=== PATIENT | female | born 1965 | race Caucasian/White ===

== ENCOUNTER 2019-03-19 13:16 | Inpatient (IN) | payer MEDICARE, OTHER ==
[~2019-03-19] VITALS: Ht 165.1 cm; Wt 94.6 kg
[2019-03-19] MEDS: ACCU-CHEK XX SCH (00:37)
[~2019-03-19 13:16] MED LIST: ATOR10TA65 PO; GLIM2TAB PO; LOSA1TAB22 PO; TAMO10TA20 PO
--- NOTE | 2019-03-19 14:07 | ERD ---
ER Documentation Chief Complaint Chief Complaint dizziness, Headache x2hrs, BS 233 HPI 53-year-old female presenting with history of recurrent breast cancer metastasized to her lungs presenting with right-sided frontal headache that started this morning. The headache was gradual in onset, now an 8 out of 10. The pain radiates to the back of her head. The pain is pressure-like. No alleviating or exacerbating factors. She has associated dizziness but denies any vomiting, focal weakness or numbness. She has never had a headache like this before. She recently finished chemotherapy for her lung metastases. Oncologist is Dr. Figueroa ROS All systems reviewed and are negative except as per history of present illness. Medications Home Meds Reported Medications Insulin Glargine/Lixisenatide (Soliqua 100 Unit-33 Mcg/ml Pen) 3 Ml Insuln.pen, 35 ML SQ QAM 03/19/19 Olmesartan/Amlodipin/Hcthiazid (Ojspeon-Mhimxm-Vayd 40-10-25Mg) 1 Each Tablet, 1 EACH PO DAILY, TAB 03/19/19 Citalopram Hydrobromide* (Celexa*) 20 Mg Tablet, 20 MG PO DAILY, #30 TAB 03/19/19 Anastrozole* (Arimidex*) 1 Mg Tablet, 1 MG PO DAILY, #30 TAB 03/19/19 Discontinued Reported Medications Atorvastatin (Atorvastatin) 10 Mg Tablet, 10 MG PO DAILY, #30 01/24/16 Glimepiride* (Glimepiride*) 2 Mg Tablet, 2 MG PO DAILY, #30 01/24/16 Losartan-Hydrochlorothiazide (Losartan-HCTZ) 50-12.5 Mg Tab, 50 MG PO DAILY, #30 50-12.5 MG 01/24/16 Tamoxifen Citrate* (Tamoxifen Citrate*) Unknown Strength Tab, PO BID, TAB 10/05/14 Allergies Allergies: Coded Allergies: No Known Allergy (Verified , 10/05/14) PMhx/Soc History of Surgery: Yes (RIGHT MASTECTOMY, port a cath) Anesthesia Reaction: No Hx Neurological Disorder: No Hx Respiratory Disorders: No Hx Cardiac Disorders: Yes (HTN, HYPERLIPIDEMIA) Hx Psychiatric Problems: No Hx Miscellaneous Medical Probl: Yes (BREAST CANCER) Hx Alcohol Use: No Hx Substance Use: No Hx Tobacco Use: No FmHx Family History: No diabetes Physical Exam Vitals Vital Signs Date Temp Pulse Resp B/P (MAP) Pulse Ox O2 O2 Flow FiO2 Time Delivery Rate 03/19/19 98.2 78 20 154/73 99 Room Air 15:18 (100) 03/19/19 98.4 84 18 173/81 98 Room Air 14:30 (111) 03/19/19 98.4 84 18 157/81 98 13:25 (106) Physical Exam Const: No acute distress Head: Atraumatic Eyes: Normal Conjunctiva, PERRLA, EOMI, no nystagmus ENT: Normal External Ears, Nose and Mouth. Neck: Full range of motion. No meningismus. Resp: Clear to auscultation bilaterally Cardio: Regular rate and rhythm, no murmurs Abd: Soft, non tender, non distended. Normal bowel sounds Skin: No petechiae or rashes Back: No midline or flank tenderness Ext: No cyanosis, or edema Neur: Awake and alert, oriented x3, normal speech, no facial asymmetry, cranial nerves intact, strength and sensations intact in all 4 extremities. Normal gait and balance Psych: Normal Mood and Affect Result Diagram: 03/19/19 1438 03/19/19 1538 Results 24 hrs Laboratory Tests Test 03/19/19 13:24 03/19/19 14:38 03/19/19 15:38 Bedside Glucose 233 mg/dL White Blood Count 8.8 10^3/ul Red Blood Count 4.39 10^6/ul Hemoglobin 13.1 g/dl Hematocrit 39.1 % Mean Corpuscular Volume 89.1 fl Mean Corpuscular Hemoglobin 29.8 pg Mean Corpuscular 33.5 g/dl Hemoglobin Concent Red Cell Distribution Width 12.8 % Platelet Count 217 10^3/UL Mean Platelet Volume 11.8 fl Immature Granulocytes % 0.200 % Neutrophils % 51.0 % Lymphocytes % 41.5 % Monocytes % 6.0 % Eosinophils % 0.7 % Basophils % 0.6 % Nucleated Red Blood Cells % 0.0 /100WBC Immature Granulocytes # 0.020 10^3/ul Neutrophils # 4.5 10^3/ul Lymphocytes # 3.7 10^3/ul Monocytes # 0.5 10^3/ul Eosinophils # 0.1 10^3/ul Basophils # 0.1 10^3/ul Nucleated Red Blood Cells # 0.0 10^3/ul Sodium Level 137 mmol/L Potassium Level 4.2 mmol/L Chloride Level 103 mmol/L Carbon Dioxide Level 26 mmol/L Anion Gap 8 Blood Urea Nitrogen 19 mg/dl Creatinine 0.60 mg/dl Est Glomerular Filtrat Rate mL/min > 60 mL/min Glucose Level 232 mg/dl Calcium Level 9.1 mg/dl Current Medications Medications Dose Sig/Isra Start Time Status Last (Trade) Ordered Route PRN Stop Time Admin Dose Reason Admin Sodium 500 ml @ Q1H STAT 03/19/19 DC 03/19/19 Chloride 500 mls/hr IV 14:14 14:34 03/19/19 15:13 1,000 mg ONCE STAT 03/19/19 DC 03/19/19 Acetaminophen PO 14:14 14:34 (Tylenol 03/19/19 14:16 Tab) 10 mg ONCE STAT 03/19/19 DC 03/19/19 Metoclopramid IV 14:14 14:34 e HCl 03/19/19 14:16 (Reglan) Morphine 4 mg ONCE STAT 03/19/19 DC 03/19/19 Sulfate IV 15:39 16:13 (morphine) 03/19/19 15:40 10 mg ONCE ONCE 03/19/19 DC 03/19/19 Dexamethasone IV 16:00 16:15 (Decadron) 03/19/19 16:01 Ondansetron 4 mg ER BRIDGE 03/19/19 HCl (Zofran PRN IV 17:30 Inj) NAUSEA/VOMITI 03/20/19 17:29 NG 650 mg ER BRIDGE 03/19/19 Acetaminophen PRN PO 17:30 (Tylenol .MILD PAIN 03/20/19 17:29 Tab) 1-3 OR TEMP Procedures/MDM EMERGENT LABS AND DIAGNOSTIC STUDIES: Lab Results above were reviewed and interpreted by me. CBC: no anemia or evidence of infection BMP: Hyperglycemic. [no e/o clinically significant electrolyte abnormality severe acidosis, alkalosis, renal failure, diabetic ketoacidosis] 12-lead EKG was interpreted by Ivan Soares MD: Normal Sinus Rhythm Normal axis Normal intervals No acute ST or T wave changes suggestive of acute ischemia or STEMI. Radiology Results as interpreted by Radiology below were reviewed by Margaret Soares MD: CT brain shows evidence of mets to the brain without midline shift with vasogenic edema MRI brain results pending Initial Nursing notes reviewed. Previous Medical Records requested via the Electronic Health Record. EMERGENCY DEPARTMENT COURSE / MEDICAL DECISION MAKING: Patient is presenting with new onset right-sided headache with dizziness. She is neurovascularly intact on exam. Low suspicion for meningitis. However given her cancer history, CT of the brain was done showing evidence of multiple metastases to the brain. This is likely the cause of her headache. I spoke with the neurosurgeon on-call, Dr. King who recommended an MRI of the brain. He does not think that she needs any surgery for this but may need radiation for symptom control. Patient will be admitted for further work-up and management. Accepting Care Team: Current data and ongoing care discussed. Time: Time of admission Primary Provider: Dr. Fischer Consulting: Dr. King Outstanding Data: none Departure Diagnosis: Primary Impression: Acute headache Headache type: unspecified Intractability: intractable Qualified Codes: R51 - Headache Additional Impression: Brain metastases Condition: Serious ABIGAIL SOARES MD Mar 19, 2019 14:07
[2019-03-19] MEDS ORDERED: ACETAMINOPHEN 500 MG TAB PO STA (14:14)
[2019-03-19] MEDS ORDERED: SOD CHLORIDE 0.9% 500 ML IV STA (14:14)
[2019-03-19] MEDS ORDERED: METOCLOPRAMIDE 10 MG INJ IV STA (14:14)
[2019-03-19] MEDS ORDERED: morphine 4 MG/ML VIAL IV STA (15:39)
[2019-03-19] MEDS ORDERED: DEXAMETHASONE 10 MG/ML 1 ML INJ IV ONE (16:00)
[2019-03-19] MEDS ORDERED: ANAS1TAB PO (16:04)
[2019-03-19] MEDS ORDERED: CITA20TA11 PO (16:04)
[2019-03-19] MEDS ORDERED: OLME1TAB PO (16:07)
[2019-03-19] MEDS ORDERED: INSU3INS2 SQ (16:14)
[2019-03-19] MEDS ORDERED: ACETAMINOPHEN 325 MG TAB PO PRN ×2 (17:30→20:00)
[2019-03-19] MEDS ORDERED: ONDANSETRON 4 MG INJ IV PRN ×2 (17:30→20:00)
[2019-03-19 19:28] VITALS: Ht 165.1 cm; Wt 94.6 kg
[2019-03-19 20:00] VITALS: BP 146/70; PULSE 80; RESP 20
[2019-03-19] MEDS ORDERED: morphine 2 MG INJ IV PRN (20:00)
[2019-03-19 20:11] VITALS: PULSE 73
[2019-03-19] MEDS ORDERED: DEXTROSE 50% 50 ML SYRINGE IV PRN ×2 (20:30)
[2019-03-19] MEDS ORDERED: GLUCOSE GEL 15 GRAM TUBE PO PRN ×2 (20:30)
[2019-03-19] MEDS ORDERED: GLUCAGON 1 MG INJ IM PRN (20:30)
[2019-03-19] MEDS ORDERED: GLUCOSE GEL 15 GRAM TUBE BUCCAL PRN (20:30)
--- NOTE | 2019-03-19 20:45 | CONS ---
DATE OF ADMISSION: 03/19/2019 DATE OF CONSULTATION: 03/19/2019 TYPE OF CONSULTATION: Neurosurgical. REQUESTING PHYSICIAN: ____ INDICATION FOR CONSULTATION: Brain metastasis. HISTORY OF PRESENT ILLNESS: The patient is a 53-year-old right-handed female with history of breast cancer diagnosed in 2010, status post chemotherapy. The patient was diagnosed with lung metastasis i n 07/2017 and has been receiving chemotherapy for this as well. The patient reports headaches for 2 weeks, worsening recently with associated dizziness when she ambulates. She denies any nausea or vom iting. Pain is diffuse and varies in location. There are no alleviating or exacerbating symptoms. She denies any numbness, tingling, weakness or radiating pain. She denies any blurry vision or cogni tive difficulty or speech problem. The patient states that she has not had headaches of this nature before. The patient's oncologist is Dr. Figueroa. REVIEW OF SYSTEMS: A 12-point review of systems was performed. Pertinent positives and negatives li sted in history of present illness and below. CONSTITUTIONAL: Denies any fever, chills or weight loss. HEMATOLOGIC: Denies any history of easy bruising or bleeding. CARDIAC: Denies any chest pain. PULMONARY: Denies shortness of breath. MUSCULOSKELETAL: Denies any neck or back pain. MEDICATIONS: Reviewed and include: 1. ____ 2. Amlodipine. 3. Hydrochlorothiazide. 4. Celexa. 5. Arimidex. ALLERGIES: NO KNOWN DRUG ALLERGIES. PAST MEDICAL HISTORY: Significant for diabetes and hypertension. SOCIAL HISTORY: The patient is single. She is a nonsmoker, nondrinker. PAST SURGICAL HISTORY: Significant for Port-A-Cath placement and right mastectomy in 2010. FAMILY HISTORY: Denies any history of inherited bleeding disorders. PHYSICAL EXAMINATION: VITAL SIGNS: The patient's temperature is 98.2, pulse 78, respirations 20, blood pressure 154/74, sa turating 99% on room air. GENERAL: The patient is mildly obese, middle-aged female lying in the hospital bed in no acute distr ess. HEAD AND NECK: She is normocephalic, atraumatic. CARDIAC: Regular rate and rhythm. LUNGS: Clear to auscultation. ABDOMEN: Nontender, nondistended, soft. EXTREMITIES: No clubbing, cyanosis or edema. NEUROLOGIC: The patient is awake, alert and oriented x3. Fluent speech. Follows commands readily a nd appropriately. She has normal attention and concentration. She has intact remote, immediate and recent memory. Cranial nerves II through XII are serially tested and are intact. Specifically II: Visual small full concentration and grossly normal visual acuity. III, IV and IV: Extraocular musc les are intact. Pupils are equal, reactive, round to light. V: Normal facial sensation bilaterally . VII: Face symmetrically dynamically and statically. VIII: Grossly audible auditory acuity and n ormal voice. IX: A 9/10 symmetrical palate raise. XI: 5/5 sternocleidomastoid and shoulder shrug. XII: No tongue deviation protruded. Motor: A 5/5. She has minimal left pronator drift. Cerebel lar: She has no ataxia, dysmetria or diadochokinesis with [id number]-[id number]-ccqa or mvbbzj-iy-anwimw testing . Gait was not assessed secondary to condition. Sensation was intact to light touch. Deep tendon r eflexes are 1+ throughout with no clonus, Babinski or Ok sign. LABORATORY DATA: Her white count 8.8, hemoglobin 13.1, platelets 217. Sodium 137, BUN and creatinin e is 19 and 0.6 with glucose of 232. REVIEW OF RADIOGRAPHIC RESULTS: I reviewed the patient's CT scan of the head as well as her MRI of t he brain. The radiologist interpreted the CT scan of the head which did show several right brain met astasis identified with surrounding vasogenic edema and the concern for metastatic lesion. There is no midline shift. There is no intracranial hemorrhage or acute territorial infarction and MRI is rec ommended. I concur with this interpretation. MRI of the brain I reviewed and I counted at least 10 lesions supratentorial and infratentorially, the largest of which is approximately 3 x 2 x 3 cm in th e right frontal inferior lobe. There are numerous metastases in the cerebellum; however, there is no evidence of hydrocephalus, midline shift or severe edema though there is localized edema around each metastasis. The radiologist interpreted also the findings were consistent with metastatic disease. ASSESSMENT AND PLAN: A 53-year-old female with metastatic breast cancer. I discussed patient's sign s, symptoms, physical examination and radiographic findings with her. Given the patient's history of breast cancer and metastatic disease elsewhere in the body, the metastases in the brain are invariab ly breast cancer. None of the lesions are significantly large enough to likely benefit any surgical resection as the patient does not have any impending deterioration from the size of the lesion or foc al neurologic deficit associated with the lesions. As well, there are multiple metastases and radiat ion surgery for this metastasis has generally efficacious of surgical resection. I discussed the pos sibility for radiosurgery versus whole brain radiation; however given the total number of metastases, this would appear to be most recently treated with whole brain radiation. At this point, I did not see a role for any neurosurgical intervention for these issues and the patient should follow up with her oncologist, Dr. Figueroa, who can refer her to radiation oncologist for further treatment. The neo ent has been placed on steroids by the ER physician and I would agree with this recommendation and he r radiation oncology further recommendations regarding continuation of such treatment, though the patti roids may be beneficial help with the patient's current symptoms. The patient expressed understandin g and in agreement with this plan of care. Dictated By: TRACE MESSINA MD LG/SHERLEY Conf#: [id number] DID#: [id number] CC: ALBAN VILLASEÑOR MD;*EndCC*
[2019-03-20] VITALS (11 sets, daily range): BP systolic 107–129; BP diastolic 59–78; PULSE 68–83; RESP 18–20
[2019-03-20] MEDS: INSULIN ASPART [NOVOLOG] 3 ML PEN SC SCH ×5 (00:37→21:03)
[2019-03-20] MEDS ORDERED: ACCU-CHEK XX ONE (02:00)
[2019-03-20] MEDS ORDERED: INSULIN ASPART [NOVOLOG] 3 ML PEN SC ONE (02:00)
[2019-03-20] MEDS: PANTOPRAZOLE (EC) 40 MG TAB PO SCH (06:15)
[2019-03-20] MEDS: ACCU-CHEK XX SCH ×4 (07:25→21:03)
[2019-03-20] MEDS: HYDROCHLOROTHIAZIDE 25 MG TAB PO SCH (08:23)
[2019-03-20] MEDS: CITALOPRAM 20 MG TAB PO SCH (08:23)
[2019-03-20] MEDS: AMLODIPINE 10 MG TAB PO SCH (08:23)
[2019-03-20] MEDS ORDERED: LOSARTAN 50 MG TAB PO SCH (09:00)
[2019-03-20] MEDS ORDERED: NON-FORMULARY/PATIENT OWN MED (Olmesartan/Amlodipin/Hcthiazid (Olmsrtn-Amldpn-Hctz 40-10-2 PO SCH (09:00)
[2019-03-20] MEDS: ANASTROZOLE 1 MG TAB PO SCH (10:54)
--- NOTE | 2019-03-20 12:17 | QN ---
Documentation Comment PT SEEN AND EXAMINED WINSTON PEREZ MD Mar 20, 2019 12:17
--- NOTE | 2019-03-20 12:25 | CONS ---
Consultation Date/Type/Reason Admit Date/Time Mar 19, 2019 at 17:15 Date of Consultation: Mar 20, 2019 Type of Consult oncology Reason for Consultation Her 2 positive breast cancer Requesting Provider: WINSTON PEREZ MD Date/Time of Note DATE: 03/20/19 TIME: 12:17 Hx of Present Illness 52 yo female originally dx with R Stage III breast CA in 2011. Received TCH -> Herceptin then Tamoxifen then Arimidex. 06/2016 pt was noted to have recurrence ot her lungs while on Arimidex. 07/2016 pt was started on THP for 3 cycles then on maintenance HP 12/14/18 pt was given her 32nd dose of PH. SHe was having some more sx of fatigue. 01/2019 CT revealed no evidence of disease 03/08/19 MUGA EF 57% Given the above pt was given a break from her therapy 03/20/19 pt presents to ED with headaches. MRI was done which revealed : Multiple enhancing lesions throughout the supratentorial and infratentorial brain parenchyma. Largest is seen in the right anterior frontal lobe, measuring up to 3.0 cm. Multiple lesions demonstrate surrounding vasogenic edema. However, there is no midline shift or herniation. Findings are consistent with metastatic di sease. PT has since been started on Dexamethasone 4mg q 6 hours. Constitutional: poor po, other (headache) Eyes: no complaints ENT: no complaints Respiratory: no complaints Cardiovascular: no complaints Gastrointestinal: no complaints Genitourinary: no complaints Musculoskeletal: no complaints Skin: no complaints Neurologic: no complaints Endocrine: no complaints Lymphatic: no complaints Psychological: anxiety, depression Past Medical History DM2 HTN Neuropathy Home Meds Reported Medications Insulin Glargine/Lixisenatide (Soliqua 100 Unit-33 Mcg/ml Pen) 3 Ml Insuln.pen, 35 ML SQ QAM 03/19/19 Olmesartan/Amlodipin/Hcthiazid (Qidmism-Dhxftc-Miii 40-10-25Mg) 1 Each Tablet, 1 EACH PO DAILY, TAB 03/19/19 Citalopram Hydrobromide* (Celexa*) 20 Mg Tablet, 20 MG PO DAILY, #30 TAB 03/19/19 Anastrozole* (Arimidex*) 1 Mg Tablet, 1 MG PO DAILY, #30 TAB 03/19/19 Discontinued Reported Medications Atorvastatin (Atorvastatin) 10 Mg Tablet, 10 MG PO DAILY, #30 01/24/16 Glimepiride* (Glimepiride*) 2 Mg Tablet, 2 MG PO DAILY, #30 01/24/16 Losartan-Hydrochlorothiazide (Losartan-HCTZ) 50-12.5 Mg Tab, 50 MG PO DAILY, #30 50-12.5 MG 01/24/16 Tamoxifen Citrate* (Tamoxifen Citrate*) Unknown Strength Tab, PO BID, TAB 10/05/14 Medications Current Medications Insulin Aspart (Novolog Insulin Pen) NOVOLOG *MODERATE* ALGORITHM WITH MEALS BEDTIME SC Last administered on 03/20/19at 08:45; Admin Dose 6 UNIT; Start 03/19/19 at 21:00 Diagnostic Test (Pha) (Accu-Chek) 1 ea AC MEALS AND BEDTIME XX Last administered on 03/20/19at 07:25; Admin Dose 1 EA; Start 03/19/19 at 21:00 Pantoprazole (Protonix Tab) 40 mg DAILY@06 PO Last administered on 03/20/19at 06:15; Admin Dose 40 MG; Start 03/20/19 at 06:00 Acetaminophen (Tylenol Tab) 650 mg Q6H PRN PO MILD PAIN(1-3)OR ELEVATED TEMP; Start 03/19/19 at 20:00 Ondansetron HCl (Zofran Inj) 4 mg Q6H PRN IV NAUSEA AND/OR VOMITING; Start 03/19/19 at 20:00 Bisacodyl (Dulcolax) 10 mg BID PRN PO CONSTIPATION; Start 03/19/19 at 20:00 Morphine Sulfate (morphine) 2 mg Q4H PRN IV SEVERE PAIN LEVEL 7-10; Start 03/19/19 at 20:00 Anastrozole (Arimidex) 1 mg DAILY PO Last administered on 03/20/19at 10:54; Admin Dose 1 MG; Start 03/20/19 at 09:00 Citalopram Hydrobromide (Celexa) 20 mg DAILY PO Last administered on 03/20/19at 08:23; Admin Dose 20 MG; Start 03/20/19 at 09:00 Miscellaneous Information 1 ea NOTE XX ; Start 03/19/19 at 20:30 Glucose (Glutose) 15 gm Q15M PRN PO DECREASED GLUCOSE; Start 03/19/19 at 20:30 Glucose (Glutose) 22.5 gm Q15M PRN PO DECREASED GLUCOSE; Start 03/19/19 at 20:30 Dextrose (D50w Syringe) 25 ml Q15M PRN IV DECREASED GLUCOSE; Start 03/19/19 at 20:30 Dextrose (D50w Syringe) 50 ml Q15M PRN IV DECREASED GLUCOSE; Start 03/19/19 at 20:30 Glucagon (Glucagen) 1 mg Q15M PRN IM DECREASED GLUCOSE; Start 03/19/19 at 20:30 Glucose (Glutose) 15 gm Q15M PRN BUCCAL DECREASED GLUCOSE; Start 03/19/19 at 20:30 Hydrochlorothiazide (Hydrochlorothiazide) 25 mg DAILY PO Last administered on 03/20/19at 08:23; Admin Dose 25 MG; Start 03/20/19 at 09:00 Amlodipine Besylate (Norvasc) 10 mg DAILY PO Last administered on 03/20/19at 08:23; Admin Dose 10 MG; Start 03/20/19 at 09:00 Losartan Potassium (Cozaar) 100 mg DAILY PO Last administered on 03/20/19at 08:23; Admin Dose 100 MG; Start 03/20/19 at 09:00 Dexamethasone (Decadron) 4 mg Q6 IV ; Start 03/20/19 at 12:00 Allergies: Coded Allergies: No Known Allergy (Verified , 10/05/14) Past Surgical History Past Surgical Hx: no surgical history Family History Significant Family History: no pertinent family hx Social History Alcohol Use: none Smoking Status: Never smoker Drug Use: none Exam/Review of Systems Exam Vitals Vital Signs Date Temp Pulse Resp B/P (MAP) Pulse Ox O2 O2 Flow FiO2 Time Delivery Rate 03/20/19 98.0 77 18 115/60 98 12:00 (78) 03/19/19 Room Air 18:39 Intake and Output 03/19/19 03/19/19 03/20/19 1414:59 22:59 06:59 IntakeIntake Total 800 ml BalanceBalance 800 ml Constitutional: oriented, frail Psych: no complaints Head: normocephalic Eyes: nl conjunctiva ENMT: nl external ears & nose Neck: supple Respiratory: clear to auscultation Cardiovascular: regular rate and rhythm Gastrointestinal: soft Musculoskeletal: nl extremities to inspection Extremities: normal pulses Results Result Diagram: 03/20/19 0540 03/20/19 0540 Results 24hrs Laboratory Tests Test 03/19/19 13:24 03/19/19 14:38 03/19/19 15:38 03/20/19 00:18 Bedside Glucose 233 H 334 H White Blood Count 8.8 # Red Blood Count 4.39 Hemoglobin 13.1 Hematocrit 39.1 Mean Corpuscular 89.1 Volume Mean Corpuscular 29.8 Hemoglobin Mean Corpuscular 33.5 Hemoglobin Concent Red Cell 12.8 Distribution Width Platelet Count 217 Mean Platelet Volume 11.8 H Immature 0.200 Granulocytes % Neutrophils % 51.0 Lymphocytes % 41.5 Monocytes % 6.0 Eosinophils % 0.7 Basophils % 0.6 Nucleated Red Blood 0.0 Cells % Immature 0.020 Granulocytes # Neutrophils # 4.5 Lymphocytes # 3.7 H Monocytes # 0.5 Eosinophils # 0.1 Basophils # 0.1 Nucleated Red Blood 0.0 Cells # Sodium Level 137 Potassium Level 4.2 Chloride Level 103 Carbon Dioxide Level 26 Anion Gap 8 Blood Urea Nitrogen 19 Creatinine 0.60 Est Glomerular > 60 Filtrat Rate mL/min Glucose Level 232 H Calcium Level 9.1 Test 03/20/19 01:37 03/20/19 05:40 03/20/19 06:19 03/20/19 08:10 Bedside Glucose 318 H 269 H 250 H White Blood Count 8.9 Red Blood Count 4.29 Hemoglobin 13.0 Hematocrit 38.7 Mean Corpuscular 90.2 Volume Mean Corpuscular 30.3 Hemoglobin Mean Corpuscular 33.6 Hemoglobin Concent Red Cell 12.4 Distribution Width Platelet Count 216 Mean Platelet Volume 11.5 H Immature 0.400 Granulocytes % Neutrophils % Segmented 52 Neutrophils % (Manual) Lymphocytes % Lymphocytes % 43 (Manual) Reactive Lymphocytes 4 H % (Manual) Monocytes % Monocytes % (Manual) 1 Eosinophils % Basophils % Nucleated Red Blood 0.0 Cells % Immature 0.040 H Granulocytes # Neutrophils # Lymphocytes (Manual) 3.8 H Lymphocytes # Reactive Lymphocytes 0.3 H # Monocytes # Monocytes # (Manual) 0.0 L Eosinophils # Basophils # Nucleated Red Blood Cells # Platelet Estimate NORMAL Giant Platelets 1 H Sodium Level 138 Potassium Level 4.6 Chloride Level 104 Carbon Dioxide Level 24 Anion Gap 10 Blood Urea Nitrogen 23 H Creatinine 0.61 Est Glomerular > 60 Filtrat Rate mL/min Glucose Level 283 H Calcium Level 9.3 Medications Medication Current Medications Insulin Aspart (Novolog Insulin Pen) NOVOLOG *MODERATE* ALGORITHM WITH MEALS BEDTIME SC Last administered on 03/20/19at 08:45; Admin Dose 6 UNIT; Start 03/19/19 at 21:00 Diagnostic Test (Pha) (Accu-Chek) 1 ea AC MEALS AND BEDTIME XX Last administered on 03/20/19at 07:25; Admin Dose 1 EA; Start 03/19/19 at 21:00 Pantoprazole (Protonix Tab) 40 mg DAILY@06 PO Last administered on 03/20/19at 06:15; Admin Dose 40 MG; Start 03/20/19 at 06:00 Acetaminophen (Tylenol Tab) 650 mg Q6H PRN PO MILD PAIN(1-3)OR ELEVATED TEMP; Start 03/19/19 at 20:00 Ondansetron HCl (Zofran Inj) 4 mg Q6H PRN IV NAUSEA AND/OR VOMITING; Start 03/19/19 at 20:00 Bisacodyl (Dulcolax) 10 mg BID PRN PO CONSTIPATION; Start 03/19/19 at 20:00 Morphine Sulfate (morphine) 2 mg Q4H PRN IV SEVERE PAIN LEVEL 7-10; Start 03/19/19 at 20:00 Anastrozole (Arimidex) 1 mg DAILY PO Last administered on 03/20/19at 10:54; Admin Dose 1 MG; Start 03/20/19 at 09:00 Citalopram Hydrobromide (Celexa) 20 mg DAILY PO Last administered on 03/20/19at 08:23; Admin Dose 20 MG; Start 03/20/19 at 09:00 Miscellaneous Information 1 ea NOTE XX ; Start 03/19/19 at 20:30 Glucose (Glutose) 15 gm Q15M PRN PO DECREASED GLUCOSE; Start 03/19/19 at 20:30 Glucose (Glutose) 22.5 gm Q15M PRN PO DECREASED GLUCOSE; Start 03/19/19 at 20:30 Dextrose (D50w Syringe) 25 ml Q15M PRN IV DECREASED GLUCOSE; Start 03/19/19 at 20:30 Dextrose (D50w Syringe) 50 ml Q15M PRN IV DECREASED GLUCOSE; Start 03/19/19 at 20:30 Glucagon (Glucagen) 1 mg Q15M PRN IM DECREASED GLUCOSE; Start 03/19/19 at 20:30 Glucose (Glutose) 15 gm Q15M PRN BUCCAL DECREASED GLUCOSE; Start 03/19/19 at 20:30 Hydrochlorothiazide (Hydrochlorothiazide) 25 mg DAILY PO Last administered on 03/20/19at 08:23; Admin Dose 25 MG; Start 03/20/19 at 09:00 Amlodipine Besylate (Norvasc) 10 mg DAILY PO Last administered on 03/20/19at 08:23; Admin Dose 10 MG; Start 03/20/19 at 09:00 Losartan Potassium (Cozaar) 100 mg DAILY PO Last administered on 03/20/19at 08:23; Admin Dose 100 MG; Start 03/20/19 at 09:00 Dexamethasone (Decadron) 4 mg Q6 IV ; Start 03/20/19 at 12:00 MARAH DUMONT M.D. Mar 20, 2019 12:25
[2019-03-20] MEDS: DEXAMETHASONE 4 MG/ML 1 ML INJ IV SCH ×2 (12:54→17:49)
--- NOTE | 2019-03-20 13:42 | HP ---
DATE OF ADMISSION: 03/19/2019 REASON FOR ADMISSION: Headache, blurry vision and dizziness. HISTORY OF PRESENTING ILLNESS: This is a 53-year-old female with past medical history of breast canc er diagnosed in 2010, status post right mastectomy followed by Dr. Figueroa as an outpatient. According to the patient, she was diagnosed with lung metastasis in 07/2017 and since then has been receiving chemotherapy with Dr. Figueroa. Her last chemotherapy was 3 months ago. According to her, she had a re cent scan with Dr. Figueroa 2 to 3 weeks ago and was told that her cancer has been in remission. The pa valentin started having some headaches for the last 2 weeks; however she was also feeling some weakness in the legs. She never told Dr. Figueroa about this. She started having worsening right-sided headache s and some dizziness and blurry vision and came into the emergency department for further evaluation. Yesterday, the patient said that she was also feeling weakness in the legs. The patient denied any nausea or vomiting today. On arrival, temperature was 98.2, pulse 78, respirations 20, blood pressu re 154/74. White count was 8.8, hemoglobin 13.1, platelet count 217, sodium 137, BUN 19, creatinine 0.6, glucose of 232. The patient had a CT of the head that showed several right brain masses that ar e identified, vasogenic edema most concerning for metastatic disease in patient with a history of april ast cancer. Then, the patient had an MRI of the brain that showed multiple enhancing lesions through out supratentorial and infratentorial brain parenchyma, largest seen in the right anterior frontal lo be measuring 3 cm, multiple lesions demonstrate surrounding vasogenic edema. There is no midline kirk ft or herniation. Findings are consistent with metastatic disease. The patient received Decadron 10 mg IV, morphine, Zofran. Neurosurgery was consulted and the patient was admitted for further manage ment. Currently, the patient states that her headache is 2 to 3. Denied any blurry vision. PAST MEDICAL HISTORY: 1. Right breast cancer, status post right mastectomy. The patient had been in remission with histor y of lung metastases in 2016. 2. Hypertension. 3. Hyperlipidemia. ALLERGIES: NONE. PAST SURGICAL HISTORY: The patient had a right mastectomy in 2010, has left Port-A-Cath placement. The patient also has tracheostomy done before which was many years ago. FAMILY HISTORY: No history of any cancer. MEDICATIONS TAKING AT HOME: 1. Arimidex 1 mg p.o. daily. 2. Olmesartan, amlodipine and hydrochlorothiazide 1 orally daily. 3. Celexa 20 daily. 4. Insulin Soliqua of 30 mL q.a.m. REVIEW OF SYSTEMS: The patient complained of some right-sided headache, some blurry vision, some diz ziness and weakness on the legs. The patient occasionally has some shortness of breath. Denied any abdominal pain, nausea, vomiting, diarrhea. Denied any history of easy bruising or bleeding. Denied any hematemesis, any melena, any bright red blood per rectum. PHYSICAL EXAMINATION: VITAL SIGNS: Currently temperature 98.2, pulse 78, respirations 20, blood pressure 154/72, saturatin g 98% on room air. GENERAL: The patient is mildly obese, does not appear to be in acute distress. HEENT: Normocephalic, atraumatic. HEART: Regular rate and rhythm. LUNGS: Clear to auscultation bilaterally. ABDOMEN: Soft, nontender, nondistended. Positive normoactive bowel sounds. EXTREMITIES: No clubbing, cyanosis or edema. NEUROLOGICAL: The patient is awake, alert, oriented x3, fluent speech, answers all questions appropr iately. Normal attention, concentration. Extraocular movements are intact. Motor strength is 5/5. Minimal left pronator drift. Gait could not be assessed secondary to condition. Sensation was inta ct. LABORATORY DATA: Shows BMP within normal limit. BUN of 23, creatinine 0.61, glucose 269, calcium 9. 3. White count 8.8, hemoglobin 13.1, platelet count 217. ASSESSMENT AND PLAN: This is a 53-year-old female who presented with: 1. Acute onset of frontal headaches with dizziness, blurry vision and weakness secondary to multiple brain metastases from history of breast cancer. 2. Diabetes with hyperglycemia, likely secondary to steroids. 3. Right brain metastases with surrounding vasogenic edema. 4. History of breast cancer status post mastectomy with history of lung cancer, now with recurrence. 5. History of hypertension. PLAN: At this period of time, the patient is admitted to telemetry. The patient will have neuro henri cks q.4 hours. Neurosurgery has already been consulted and there is no role of neurosurgical treatme nt at this point. Dr. Figueroa has been called. The patient will be referred for radiation oncologist and also chemotherapy. We will continue the patient on IV steroids with diabetes control. Rest of t he treatment will depend on the patient's hospitalization course. Dictated By: WINSTON THOMAS/SHERLEY Conf#: [id number] DID#: [id number] CC: ALBAN VILLASEÑOR MD; TRACE MESSINA MD;*End*
[2019-03-20] MEDS ORDERED: INSULIN ASPART [NOVOLOG] 3 ML PEN SC SCH (17:55)
[2019-03-20] MEDS: INSULIN GLARGINE [LANTus] (100 UNITS/ML) SYG SC SCH (21:02)
[2019-03-21] VITALS (9 sets, daily range): BP systolic 107–121; BP diastolic 55–67; PULSE 61–78; RESP 18–20
[2019-03-21] MEDS: DEXAMETHASONE 4 MG/ML 1 ML INJ IV SCH ×4 (00:17→17:40)
[2019-03-21] MEDS ORDERED: ACCU-CHEK XX SCH (02:00)
[2019-03-21] MEDS: ACCU-CHEK XX SCH ×5 (02:09→21:35)
[2019-03-21] MEDS ORDERED: INSULIN ASPART [NOVOLOG] 3 ML PEN SC ONE (02:30)
[2019-03-21] MEDS ORDERED: ACCU-CHEK XX ONE (04:30)
[2019-03-21] MEDS: PANTOPRAZOLE (EC) 40 MG TAB PO SCH (06:30)
[2019-03-21] MEDS: INSULIN GLARGINE [LANTus] (100 UNITS/ML) SYG SC SCH ×2 (07:48→21:34)
[2019-03-21] MEDS: INSULIN ASPART [NOVOLOG] 3 ML PEN SC SCH ×7 (07:49→21:35)
[2019-03-21] MEDS: AMLODIPINE 10 MG TAB PO SCH (09:09)
[2019-03-21] MEDS: LOSARTAN 25 MG TAB PO SCH (09:10)
[2019-03-21] MEDS: HYDROCHLOROTHIAZIDE 25 MG TAB PO SCH (09:10)
[2019-03-21] MEDS: CITALOPRAM 20 MG TAB PO SCH (09:10)
[2019-03-21] MEDS: ANASTROZOLE 1 MG TAB PO SCH (09:12)
[2019-03-21] MEDS: BISACODYL (EC) 5 MG TAB PO PRN (09:15)
--- NOTE | 2019-03-21 11:23 | PN ---
Date/Time of Note Date/Time of Note DATE: 03/21/19 TIME: 11:20 Assessment/Plan VTE Prophylaxis Risk score (from Ns)>0 risk: 4 SCD applied (from [facility] [place]): Yes Pharmacological prophylaxis: NA/contraindicated Pharm contraindication: low risk/ambulating Lines/Catheters IV C[facility]ter Type (from [facility] Saline Lock Assessment/Plan Assessment/Plan 53-year-old female who presented with: 1. Acute onset of frontal headaches with dizziness, blurry vision and weakness secondary to multiple brain metastases from history of breast cancer. 2. Diabetes with hyperglycemia, likely secondary to steroids. 3. Right brain metastases with surrounding vasogenic edema. 4. History of breast cancer status post mastectomy with history of lung cancer, now with recurrence. 5. History of hypertension. Plan - xrt oncologiist Dr Esteban to see patient today - increase lantus 18 bid, increased mealtime insulin and ISS - cw Dexamethasone 4 mg q6 - cw losartan and amlodipine - gi/dvt prophylaxsis Result Diagram: 03/21/19 0529 03/21/19 0529 Results 24hrs Laboratory Tests Test 03/20/19 12:37 03/20/19 16:38 03/20/19 20:37 03/21/19 02:09 Bedside Glucose 291 H 230 H 314 H 323 H Test 03/21/19 04:43 03/21/19 05:29 03/21/19 07:39 Bedside Glucose 283 H 306 H White Blood Count 10.4 Red Blood Count 4.30 Hemoglobin 12.9 Hematocrit 37.5 Mean Corpuscular 87.2 Volume Mean Corpuscular 30.0 Hemoglobin Mean Corpuscular 34.4 Hemoglobin Concent Red Cell 12.5 Distribution Width Platelet Count 216 Mean Platelet Volume 12.1 H Immature 0.400 Granulocytes % Neutrophils % 74.9 Lymphocytes % 23.2 Monocytes % 1.4 Eosinophils % 0.0 Basophils % 0.1 Nucleated Red Blood 0.0 Cells % Immature 0.040 H Granulocytes # Neutrophils # 7.8 H Lymphocytes # 2.4 Monocytes # 0.2 L Eosinophils # 0.0 Basophils # 0.0 Nucleated Red Blood 0.0 Cells # Sodium Level 137 Potassium Level 4.3 Chloride Level 101 Carbon Dioxide Level 23 Anion Gap 13 Blood Urea Nitrogen 23 H Creatinine 0.56 Est Glomerular > 60 Filtrat Rate mL/min Glucose Level 306 H Calcium Level 8.9 Phosphorus Level 4.4 Magnesium Level 2.2 Subjective 24 Hr Interval Summary Free Text/Dictation feels better today no headaches sugar elevated over 300 Exam/Review of Systems Exam Vitals Vital Signs Date Temp Pulse Resp B/P (MAP) Pulse Ox O2 O2 Flow FiO2 Time Delivery Rate 03/21/19 68 08:01 03/21/19 98.0 18 112/61 98 07:14 (78) 03/19/19 Room Air 18:39 Intake and Output 03/20/19 03/20/19 03/21/19 1515:00 23:00 07:00 IntakeIntake Total 930 ml 240 ml BalanceBalance 930 ml 240 ml Exam GENERAL: The patient is mildly obese, does not appear to be in acute distress. HEENT: Normocephalic, atraumatic. HEART: Regular rate and rhythm. LUNGS: Clear to auscultation bilaterally. ABDOMEN: Soft, nontender, nondistended. Positive normoactive bowel sounds. EXTREMITIES: No clubbing, cyanosis or edema. NEUROLOGICAL: The patient is awake, alert, oriented x3, fluent speech, answers all questions appropriately. Normal attention, concentration. Extraocular movements are intact. Motor strength is 5/5. Minimal left pronator drift. Gait could not be assessed secondary to condition. Sensation was intact. Results Results 24hrs Laboratory Tests Test 03/20/19 12:37 03/20/19 16:38 03/20/19 20:37 03/21/19 02:09 Bedside Glucose 291 H 230 H 314 H 323 H Test 03/21/19 04:43 03/21/19 05:29 03/21/19 07:39 Bedside Glucose 283 H 306 H White Blood Count 10.4 Red Blood Count 4.30 Hemoglobin 12.9 Hematocrit 37.5 Mean Corpuscular 87.2 Volume Mean Corpuscular 30.0 Hemoglobin Mean Corpuscular 34.4 Hemoglobin Concent Red Cell 12.5 Distribution Width Platelet Count 216 Mean Platelet Volume 12.1 H Immature 0.400 Granulocytes % Neutrophils % 74.9 Lymphocytes % 23.2 Monocytes % 1.4 Eosinophils % 0.0 Basophils % 0.1 Nucleated Red Blood 0.0 Cells % Immature 0.040 H Granulocytes # Neutrophils # 7.8 H Lymphocytes # 2.4 Monocytes # 0.2 L Eosinophils # 0.0 Basophils # 0.0 Nucleated Red Blood 0.0 Cells # Sodium Level 137 Potassium Level 4.3 Chloride Level 101 Carbon Dioxide Level 23 Anion Gap 13 Blood Urea Nitrogen 23 H Creatinine 0.56 Est Glomerular > 60 Filtrat Rate mL/min Glucose Level 306 H Calcium Level 8.9 Phosphorus Level 4.4 Magnesium Level 2.2 Medications Medication Current Medications Diagnostic Test (Pha) (Accu-Chek) 1 ea AC MEALS AND BEDTIME XX Last administered on 03/21/19at 07:39; Admin Dose 1 EA; Start 03/19/19 at 21:00 Pantoprazole (Protonix Tab) 40 mg DAILY@06 PO Last administered on 03/21/19at 06:30; Admin Dose 40 MG; Start 03/20/19 at 06:00 Acetaminophen (Tylenol Tab) 650 mg Q6H PRN PO MILD PAIN(1-3)OR ELEVATED TEMP; Start 03/19/19 at 20:00 Ondansetron HCl (Zofran Inj) 4 mg Q6H PRN IV NAUSEA AND/OR VOMITING; Start 03/19/19 at 20:00 Bisacodyl (Dulcolax) 10 mg BID PRN PO CONSTIPATION Last administered on 03/21/19at 09:15; Admin Dose 10 MG; Start 03/19/19 at 20:00 Morphine Sulfate (morphine) 2 mg Q4H PRN IV SEVERE PAIN LEVEL 7-10; Start 03/19/19 at 20:00 Anastrozole (Arimidex) 1 mg DAILY PO Last administered on 03/21/19at 09:12; Admin Dose 1 MG; Start 03/20/19 at 09:00 Citalopram Hydrobromide (Celexa) 20 mg DAILY PO Last administered on 03/21/19at 09:10; Admin Dose 20 MG; Start 03/20/19 at 09:00 Miscellaneous Information 1 ea NOTE XX ; Start 03/19/19 at 20:30 Glucose (Glutose) 15 gm Q15M PRN PO DECREASED GLUCOSE; Start 03/19/19 at 20:30 Glucose (Glutose) 22.5 gm Q15M PRN PO DECREASED GLUCOSE; Start 03/19/19 at 20:30 Dextrose (D50w Syringe) 25 ml Q15M PRN IV DECREASED GLUCOSE; Start 03/19/19 at 20:30 Dextrose (D50w Syringe) 50 ml Q15M PRN IV DECREASED GLUCOSE; Start 03/19/19 at 20:30 Glucagon (Glucagen) 1 mg Q15M PRN IM DECREASED GLUCOSE; Start 03/19/19 at 20:30 Glucose (Glutose) 15 gm Q15M PRN BUCCAL DECREASED GLUCOSE; Start 03/19/19 at 20:30 Hydrochlorothiazide (Hydrochlorothiazide) 25 mg DAILY PO Last administered on 03/21/19 09:10; Admin Dose 25 MG; Start 03/20/19 at 09:00 Amlodipine Besylate (Norvasc) 10 mg DAILY PO Last administered on 03/21/19 09:09; Admin Dose 10 MG; Start 03/20/19 at 09:00 Dexamethasone (Decadron) 4 mg Q6 IV Last administered on 03/21/19 06:30; Admin Dose 4 MG; Start 03/20/19 at 12:00 Losartan Potassium (Cozaar) 25 mg DAILY PO Last administered on 03/21/19 09:10; Admin Dose 25 MG; Start 03/21/19 at 09:00 Diagnostic Test (Pha) (Accu-Chek) 1 ea 02 XX Last administered on 03/21/19 02:09; Admin Dose 1 EA; Start 03/21/19 at 02:00 Insulin Aspart (Novolog Insulin Pen) NOVOLOG *MILD* ALGORITHM WITH MEALS B EDTIME SC Last administered on 03/21/19at 07:49; Admin Dose 5 UNIT; Start 03/20/19 at 12:30 Insulin Aspart (Novolog Insulin Pen) 8 unit WITH MEALS SC Last administered on 03/21/19 07:49; Admin Dose 8 UNIT; Start 03/21/19 at 07:55 Insulin Glargine (Lantus) 18 units BID@0800,2000 SC ; Start 03/21/19 at 20:00; Status WINSTON GARCIA MD Mar 21, 2019 11:23
[2019-03-21] MEDS ORDERED: ENOXAPARIN 40 MG/0.4 ML SYG SC SCH (11:30)
--- NOTE | 2019-03-21 13:39 | CONSI ---
Assessment/Plan Assessment/Plan Assessment/Plan (Recall) 53F c/ Hx pf breast Ca in 2010, s/p surgery, c/b lung mets in 2017...s/p chemo...who presents for evaluation of headache, dizziness, and gait imbalance.. MRI brain confirmed multiple enhancing brain lesions, c/w metastases...for which neurology is consulted. P: Oncology follow up Pain control and other medical management per primary Seizure precautions/AED Tx not presently indicated.. PT for gait training, as able Will follow Consultation Date/Type/Reason Admit Date/Time Mar 19, 2019 at 17:15 Type of Consult Neurology Reason for Consultation brain mets Requesting Provider: WINSTON PEREZ MD Date/Time of Note DATE: 03/21/19 TIME: 13:35 Hx of Present Illness This is a 53-year-old female with past medical history of breast cancer diagnosed in 2010, status post right mastectomy followed by Dr. Figueroa as an outpatient. According to the patient, she was diagnosed with lung metastasis in 07/2017 and since then has been receiving chemotherapy with Dr. Figueroa. Her last chemotherapy was 3 months ago. According to her, she had a recent scan with Dr. Figueroa 2 to 3 weeks ago and was told that her cancer has been in remission. The patient started having some headaches for the last 2 weeks; however she was also feeling some weakness in the legs. She never told Dr. Figueroa about this. She started having worsening right-sided headaches and some dizziness and blurry vision and came into the emergency department for further evaluation. Yesterday , the patient said that she was also feeling weakness in the legs. The patient denied any nausea or vomiting today. On arrival, temperature was 98.2, pulse 78, respirations 20, blood pressure 154/74. White count was 8.8, hemoglobin 13.1, platelet count 217, sodium 137, BUN 19, creatinine 0.6, glucose of 232. The patient had a CT of the head that showed several right brain masses that are identified, vasogenic edema most concerning for metastatic disease in patient with a history of breast cancer. Then, the patient had an MRI of the brain that showed multiple enhancing lesions throughout supratentorial and infratentorial brain parenchyma, largest seen in the right anterior frontal lobe measuring 3 cm, multiple lesions demonstrate surrounding vasogenic edema. There is no midline shift or herniation. Findings are consistent with metastatic disease. The patient received Decadron 10 mg IV, morphine, Zofran. Neurosurgery was consulted and the patient was admitted for further management. Currently, the patient states that her headache is 2 to 3. Denied any blurry vision. o/w neg Objective Exam Vitals Vital Signs Date Temp Pulse Resp B/P (MAP) Pulse Ox O2 O2 Flow FiO2 Time Delivery Rate 03/21/19 66 12:01 03/21/19 98.0 18 109/57 98 11:54 (74) 03/19/19 Room Air 18:39 Intake and Output 03/20/19 03/20/19 03/21/19 1515:00 23:00 07:00 IntakeIntake Total 930 ml 240 ml BalanceBalance 930 ml 240 ml Exam PE: Gen Appearance: No Apparent Distress HEENT: Normocephalic Cardiovascular: Regular rate Abdomen: Soft Extremities: Dry NE: The patient was alert and oriented. Language was normal. Fund of knowledge was normal. Pupils were equal and reactive to light. There was no afferent pupillary defect. Visual small were normal. Funduscopic examination was limited. Extra-ocular movements were full. Ptosis was absent. There was no nystagmus. Facial sensation was normal. Face was symmetric with normal strength. Hearing was intact. Palate movements were normal. Neck strength was normal. There was normal tongue bulk and speed of movement. Tone was normal. Muscle bulk was normal. I did not see fasciculations. Arms and legs were symmetric. Vibration sensation was normal. Temperature and pinprick sensation was normal. Rapid alternating movements were normal. There was no dysmetria. There was no intention tremor. Gait was deferred due to bedrest. Arm and leg reflexes were symmetric. Candelario's sign was absent. Plantar responses were flexor. Results Result Diagram: 03/21/19 0529 03/21/19 0529 Results 24hrs Laboratory Tests Test 03/20/19 16:38 03/20/19 20:37 03/21/19 02:09 03/21/19 04:43 Bedside Glucose 230 H 314 H 323 H 283 H Test 03/21/19 05:29 03/21/19 07:39 03/21/19 11:43 White Blood Count 10.4 Red Blood Count 4.30 Hemoglobin 12.9 Hematocrit 37.5 Mean Corpuscular 87.2 Volume Mean Corpuscular 30.0 Hemoglobin Mean Corpuscular 34.4 Hemoglobin Concent Red Cell 12.5 Distribution Width Platelet Count 216 Mean Platelet Volume 12.1 H Immature 0.400 Granulocytes % Neutrophils % 74.9 Lymphocytes % 23.2 Monocytes % 1.4 Eosinophils % 0.0 Basophils % 0.1 Nucleated Red Blood 0.0 Cells % Immature 0.040 H Granulocytes # Neutrophils # 7.8 H Lymphocytes # 2.4 Monocytes # 0.2 L Eosinophils # 0.0 Basophils # 0.0 Nucleated Red Blood 0.0 Cells # Sodium Level 137 Potassium Level 4.3 Chloride Level 101 Carbon Dioxide Level 23 Anion Gap 13 Blood Urea Nitrogen 23 H Creatinine 0.56 Est Glomerular > 60 Filtrat Rate mL/min Glucose Level 306 H Calcium Level 8.9 Phosphorus Level 4.4 Magnesium Level 2.2 Bedside Glucose 306 H 342 H Past Medical History reviewed Home Meds Reported Medications Insulin Glargine/Lixisenatide (Soliqua 100 Unit-33 Mcg/ml Pen) 3 Ml Insuln.pen, 35 ML SQ QAM 03/19/19 Olmesartan/Amlodipin/Hcthiazid (Nzazvzh-Vmbzsx-Auog 40-10-25Mg) 1 Each Tablet, 1 EACH PO DAILY, TAB 03/19/19 Citalopram Hydrobromide* (Celexa*) 20 Mg Tablet, 20 MG PO DAILY, #30 TAB 03/19/19 Anastrozole* (Arimidex*) 1 Mg Tablet, 1 MG PO DAILY, #30 TAB 03/19/19 Discontinued Reported Medications Atorvastatin (Atorvastatin) 10 Mg Tablet, 10 MG PO DAILY, #30 01/24/16 Glimepiride* (Glimepiride*) 2 Mg Tablet, 2 MG PO DAILY, #30 01/24/16 Losartan-Hydrochlorothiazide (Losartan-HCTZ) 50-12.5 Mg Tab, 50 MG PO DAILY, #30 50-12.5 MG 01/24/16 Tamoxifen Citrate* (Tamoxifen Citrate*) Unknown Strength Tab, PO BID, TAB 10/05/14 Medications Current Medications Diagnostic Test (Pha) (Accu-Chek) 1 ea AC MEALS AND BEDTIME XX Last administered on 03/21/19at 11:44; Admin Dose 1 EA; Start 03/19/19 at 21:00 Pantoprazole (Protonix Tab) 40 mg DAILY@06 PO Last administered on 03/21/19at 06:30; Admin Dose 40 MG; Start 03/20/19 at 06:00 Acetaminophen (Tylenol Tab) 650 mg Q6H PRN PO MILD PAIN(1-3)OR ELEVATED TEMP; Start 03/19/19 at 20:00 Ondansetron HCl (Zofran Inj) 4 mg Q6H PRN IV NAUSEA AND/OR VOMITING; Start 03/19/19 at 20:00 Bisacodyl (Dulcolax) 10 mg BID PRN PO CONSTIPATION Last administered on 03/21/19at 09:15; Admin Dose 10 MG; Start 03/19/19 at 20:00 Morphine Sulfate (morphine) 2 mg Q4H PRN IV SEVERE PAIN LEVEL 7-10; Start 03/19/19 at 20:00 Anastrozole (Arimidex) 1 mg DAILY PO Last administered on 03/21/19at 09:12; Admin Dose 1 MG; Start 03/20/19 at 09:00 Citalopram Hydrobromide (Celexa) 20 mg DAILY PO Last administered on 03/21/19at 09:10; Admin Dose 20 MG; Start 03/20/19 at 09:00 Miscellaneous Information 1 ea NOTE XX ; Start 03/19/19 at 20:30 Glucose (Glutose) 15 gm Q15M PRN PO DECREASED GLUCOSE; Start 03/19/19 at 20:30 Glucose (Glutose) 22.5 gm Q15M PRN PO DECREASED GLUCOSE; Start 03/19/19 at 20:30 Dextrose (D50w Syringe) 25 ml Q15M PRN IV DECREASED GLUCOSE; Start 03/19/19 at 20:30 Dextrose (D50w Syringe) 50 ml Q15M PRN IV DECREASED GLUCOSE; Start 03/19/19 at 20:30 Glucagon (Glucagen) 1 mg Q15M PRN IM DECREASED GLUCOSE; Start 03/19/19 at 20:30 Glucose (Glutose) 15 gm Q15M PRN BUCCAL DECREASED GLUCOSE; Start 03/19/19 at 20:30 Hydrochlorothiazide (Hydrochlorothiazide) 25 mg DAILY PO Last administered on 03/21/19at 09:10; Admin Dose 25 MG; Start 03/20/19 at 09:00 Amlodipine Besylate (Norvasc) 10 mg DAILY PO Last administered on 03/21/19 09:09; Admin Dose 10 MG; Start 03/20/19 at 09:00 Dexamethasone (Decadron) 4 mg Q6 IV Last administered on 03/21/19 11:44; Admin Dose 4 MG; Start 03/20/19 at 12:00 Losartan Potassium (Cozaar) 25 mg DAILY PO Last administered on 03/21/19 09:10; Admin Dose 25 MG; Start 03/21/19 at 09:00 Diagnostic Test (Pha) (Accu-Chek) 1 ea 02 XX Last administered on 03/21/19 02:09; Admin Dose 1 EA; Start 03/21/19 at 02:00 Insulin Aspart (Novolog Insulin Pen) NOVOLOG *MILD* ALGORITHM WITH MEALS BEDTIME SC Last administered on 03/21/19 11:52; Admin Dose 5 UNIT; Start 03/20/19 at 12:30 Insulin Aspart (Novolog Insulin Pen) 8 unit WITH MEALS SC Last administered on 03/21/19 11:52; Admin Dose 8 UNIT; Start 03/21/19 at 07:55 Insulin Glargine (Lantus) 18 units BID@0800,2000 SC ; Start 03/21/19 at 20:00 Allergies: Coded Allergies: No Known Allergy (Verified , 10/05/14) Past Surgical History Past Surgical Hx: no surgical history Social History Alcohol Use: none Smoking Status: Never smoker Drug Use: none JEANETTE VERA Mar 21, 2019 13:39
--- NOTE | 2019-03-21 14:15 | CONS ---
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 Dumont. A total of 40 minutes of face to face time was spent speaking with the patient, of which greater than 50% was spent in counseling and coordination of care and the detailed question and answer session. Consultation Date/Type/Reason Admit Date/Time Mar 21, 2019 at 11:39 Initial Consult Date 03/20/19 Type of Consult oncology Reason for Consultation no acute overnight events Requesting Provider: WINSTON PEREZ MD Date/Time of Note DATE: 03/21/19 TIME: 14:04 24 HR Interval Summary Free Text/Dictation patient's headache is controlled Exam/Review of Systems Exam Vitals Vital Signs Date Temp Pulse Resp B/P (MAP) Pulse Ox O2 O2 Flow FiO2 Time Delivery Rate 03/21/19 66 12:01 03/21/19 98.0 18 109/57 98 11:54 (74) 03/19/19 Room Air 18:39 Intake and Output 03/20/19 03/20/19 03/21/19 1515:00 23:00 07:00 IntakeIntake Total 930 ml 240 ml BalanceBalance 930 ml 240 ml Constitutional: alert, oriented Psych: no complaints Head: normocephalic Eyes: nl conjunctiva ENMT: nl external ears & nose Neck: supple Respiratory: clear to auscultation Cardiovascular: regular rate and rhythm Gastrointestinal: soft Musculoskeletal: nl extremities to inspection Extremities: normal pulses Neurological: INFORMATION SECURITY MANAGER II-XII intact Results Result Diagram: 03/21/19 0529 03/21/19 0529 Results 24hrs Laboratory Tests Test 03/20/19 16:38 03/20/19 20:37 03/21/19 02:09 03/21/19 04:43 Bedside Glucose 230 H 314 H 323 H 283 H Test 03/21/19 05:29 03/21/19 07:39 03/21/19 11:43 White Blood Count 10.4 Red Blood Count 4.30 Hemoglobin 12.9 Hematocrit 37.5 Mean Corpuscular 87.2 Volume Mean Corpuscular 30.0 Hemoglobin Mean Corpuscular 34.4 Hemoglobin Concent Red Cell 12.5 Distribution Width Platelet Count 216 Mean Platelet Volume 12.1 H Immature 0.400 Granulocytes % Neutrophils % 74.9 Lymphocytes % 23.2 Monocytes % 1.4 Eosinophils % 0.0 Basophils % 0.1 Nucleated Red Blood 0.0 Cells % Immature 0.040 H Granulocytes # Neutrophils # 7.8 H Lymphocytes # 2.4 Monocytes # 0.2 L Eosinophils # 0.0 Basophils # 0.0 Nucleated Red Blood 0.0 Cells # Sodium Level 137 Potassium Level 4.3 Chloride Level 101 Carbon Dioxide Level 23 Anion Gap 13 Blood Urea Nitrogen 23 H Creatinine 0.56 Est Glomerular > 60 Filtrat Rate mL/min Glucose Level 306 H Calcium Level 8.9 Phosphorus Level 4.4 Magnesium Level 2.2 Bedside Glucose 306 H 342 H Medications Medication Current Medications Diagnostic Test (Pha) (Accu-Chek) 1 ea AC MEALS AND BEDTIME XX Last administered on 03/21/19at 11:44; Admin Dose 1 EA; Start 03/19/19 at 21:00 Pantoprazole (Protonix Tab) 40 mg DAILY@06 PO Last administered on 03/21/19 06:30; Admin Dose 40 MG; Start 03/20/19 at 06:00 Acetaminophen (Tylenol Tab) 650 mg Q6H PRN PO MILD PAIN(1-3)OR ELEVATED TEMP; Start 03/19/19 at 20:00 Ondansetron HCl (Zofran Inj) 4 mg Q6H PRN IV NAUSEA AND/OR VOMITING; Start 03/19/19 at 20:00 Bisacodyl (Dulcolax) 10 mg BID PRN PO CONSTIPATION Last administered on 03/21/19 09:15; Admin Dose 10 MG; Start 03/19/19 at 20:00 Morphine Sulfate (morphine) 2 mg Q4H PRN IV SEVERE PAIN LEVEL 7-10; Start 03/19/19 at 20:00 Anastrozole (Arimidex) 1 mg DAILY PO Last administered on 03/21/19 09:12; Admin Dose 1 MG; Start 03/20/19 at 09:00 Citalopram Hydrobromide (Celexa) 20 mg DAILY PO Last administered on 03/21/19 09:10; Admin Dose 20 MG; Start 03/20/19 at 09:00 Miscellaneous Information 1 ea NOTE XX ; Start 03/19/19 at 20:30 Glucose (Glutose) 15 gm Q15M PRN PO DECREASED GLUCOSE; Start 03/19/19 at 20:30 Glucose (Glutose) 22.5 gm Q15M PRN PO DECREASED GLUCOSE; Start 03/19/19 at 20:30 Dextrose (D50w Syringe) 25 ml Q15M PRN IV DECREASED GLUCOSE; Start 03/19/19 at 20:30 Dextrose (D50w Syringe) 50 ml Q15M PRN IV DECREASED GLUCOSE; Start 03/19/19 at 20:30 Glucagon (Glucagen) 1 mg Q15M PRN IM DECREASED GLUCOSE; Start 03/19/19 at 20:30 Glucose (Glutose) 15 gm Q15M PRN BUCCAL DECREASED GLUCOSE; Start 03/19/19 at 20:30 Hydrochlorothiazide (Hydrochlorothiazide) 25 mg DAILY PO Last administered on 03/21/19at 09:10; Admin Dose 25 MG; Start 03/20/19 at 09:00 Amlodipine Besylate (Norvasc) 10 mg DAILY PO Last administered on 03/21/19 09:09; Admin Dose 10 MG; Start 03/20/19 at 09:00 Dexamethasone (Decadron) 4 mg Q6 IV Last administered on 03/21/19at 11:44; Admin Dose 4 MG; Start 03/20/19 at 12:00 Losartan Potassium (Cozaar) 25 mg DAILY PO Last administered on 03/21/19 09:10; Admin Dose 25 MG; Start 03/21/19 at 09:00 Diagnostic Test (Pha) (Accu-Chek) 1 ea 02 XX Last administered on 03/21/19at 02:09; Admin Dose 1 EA; Start 03/21/19 at 02:00 Insulin Aspart (Novolog Insulin Pen) NOVOLOG *MILD* ALGORITHM WITH MEALS BEDTIME SC Last administered on 03/21/19 11:52; Admin Dose 5 UNIT; Start 03/20/19 at 12:30 Insulin Aspart (Novolog Insulin Pen) 8 unit WITH MEALS SC Last administered on 03/21/19 11:52; Admin Dose 8 UNIT; Start 03/21/19 at 07:55 Insulin Glargine (Lantus) 18 units BID@0800,2000 SC ; Start 03/21/19 at 20:00 MARAH DUMONT M.D. Mar 21, 2019 14:15
--- NOTE | 2019-03-21 19:14 | CONS ---
DATE OF ADMISSION: 03/21/2019 DATE OF CONSULTATION: 03/21/2019 DIAGNOSIS: Carcinoma of the breast with newly diagnosed brain metastases. NARRATIVE: The patient is a 53-year-old female who back in 2010 presented with a large breast mass a nd nipple retraction. Ultrasound-guided biopsy was performed and positive for invasive carcinoma. O n 01/26/2011, Dr. Molina performed a right modified radical mastectomy for reportedly demonstrated sta ge T2 N3 disease with of 08/07 nodes positive. My understanding is that the disease was HER-2/gareth po sitive and hormone receptor positive. She was subsequently managed with adjuvant TCH and Herceptin a nd tamoxifen. Her endocrine therapy was switched over to Arimidex. She never received chest wall ra diation. In 06/2016, she was diagnosed with recurrent disease to the lung while on Arimidex. A CT of the ches t at that time on 08/19/2016 described numerous bilateral pulmonary nodules measuring up to 1 cm in t he left lower lobe and 2 cm in the right lower lobe. CT/PET imaging on 08/28/2016 was compared to pr ior PET imaging from 12/2014 and noted an interval increase in size and number of previously seen pul monary nodules. A non-avid mildly sclerotic lesion was observed in the right posterior vertebral bod y of L1 and was without focal uptake. There was felt to reflect either remotely treated osseous meta static disease versus benign bone island. The current PET scan again confirmed innumerable bilateral solid hypermetabolic pulmonary nodules including an 11 mm lesion in the lateral basal segment of the right lower lobe, a 19 mm nodule in the medial basal segment of the right lower lobe and a 15 mm nod ule in the anteromedial basal segment of the left lower lobe. There was no other evidence of regiona l or distant disease. On 09/24/2016, a CT-guided biopsy of the lung was performed and apparently did confirm evidence of metastatic disease. Starting in 07/2016, the patient received THP for 3 cycles and then continued on HP for total of 32 cycles, the last delivered on 12/22/2018. At that time, the patient was complaining of increasing fatigue and systemic therapy was held. Of note, an MRI of the brain on 10/08/2016 showed no evidence to suggest metastatic disease. A CT/PET scan on 12/24/2016 d escribed a significant interval decrease in size of the bilateral pulmonary nodules consistent with t reatment response. Repeat CT/PET scan on 09/24/2017 described grossly stable scattered punctate pulm onary nodules, all measuring less than 3 mm. Interestingly at that time, there were newly visualized metabolically active lymph nodes in the ruben hepatis and bilateral pelvis including a right inguina l node measuring 1 cm, previously [address]/PET scan in 01/2018 noted a decrease in size and metabolic uptake previously described hypermetabolic lymph nodes throughout the neck, chest, abd omen and pelvis. Most recently, CT of the chest on 02/22/2019 showed no new pulmonary nodules. Nume sravanthi previously seen 3 to 4 mm pulmonary nodule were stable from prior study. There was stable scler osis within the right posterior vertebral body of L1. Over the past month, the patient began to complain of progressive right-sided headaches, unsteady gai t, blurry vision and dizziness. She did not sustain a fall. She had no nausea or vomiting. She had no seizure activity. She was brought to the emergency department at [facility] where CT of the head on 0 03/19/2019 describes several brain masses including a 31 mm right frontal lobe lesion, a 60 mm high ri ght frontal lobe lesion and a 50 mm posterior right frontal lobe lesion. There was vasogenic edema s urrounding each lesion but no midline shift, evidence of hemorrhage or hydrocephalus. An MRI of the brain confirmed multiple enhancing lesions throughout the brain parenchyma with central necrosis. In the right frontal lobe, a cortical lesion near the vertex measured 21 mm with surrounding vasogenic edema. Anteriorly, inferiorly in the right frontal lobe was a lesion along the right frontal convexi ty measuring 30 x 30 mm. There were 3 smaller lesions in the right frontal lobe as well and the larg est measuring 10 mm in the high parasagittal region. In the right temporal lobe, there were 3 enhanc ing lesions abutting each other, the largest posteriorly bordering the occipital lobe measuring 15 x 19 mm. There were 2 small enhancing lesions in the right parietal lobe and the largest measuring 5 m m. Multiple enhancing lesions were observed in the cerebellum. The largest was seen in the right he misphere superiorly measuring 17 mm immediately posterolateral with a second lesion measuring 15 x 17 mm. In the vermis superior to the right 4th ventricle was a lesion measuring 15 x 13 mm. Five lee tional enhancing lesions were observed in the left cerebellar hemisphere, the largest measuring 13 x 11 mm. The patient has been started on steroids and Decadron q.6 hours and is feeling somewhat better. Her headaches are diminished and her vision is improved. She is also on Protonix. PAST MEDICAL HISTORY: Diabetes, hypertension and neuropathy. PAST SURGICAL HISTORY: Right mastectomy in 2010. ALLERGIES TO MEDICATIONS: NONE. OUTPATIENT MEDICATIONS: 1. Soliqua. 2. Olmesartan - amlodipine - hydrochlorothiazide. 3. Celexa. 4. Arimidex. INPATIENT MEDICATIONS: Also include: 1. Protonix. 2. Zofran. 3. Cozaar. 4. Decadron. SOCIAL HISTORY: She denies any significant tobacco or alcohol use. REVIEW OF SYSTEMS: GENERAL: No fevers, chills or sweats. ENT: Denies otalgia, dysphagia or hoarseness. NEUROLOGIC: As above. No focal extremity weakness. RESPIRATORY: Denies shortness of breath, cough, hemoptysis, wheezing. CARDIOVASCULAR: No chest pain, palpitations, heart attack, strokes. GASTROINTESTINAL: No nausea, vomiting, abdominal pain, diarrhea, rectal bleeding or weight loss. GENITOURINARY: No dysuria, hematuria or incontinence. ENDOCRINE: No history of thyroid disease. SKIN: No history of lupus, scleroderma or shingles. MUSCULOSKELETAL: Denies any new back, hip or rib pain. PHYSICAL EXAMINATION: GENERAL: Well-developed female in no distress. HEENT: Normocephalic, atraumatic. Sclerae are icteric. Pupils are equal and reactive. Extraocular motions are intact. No facial droop. NODES: No palpable cervical, supraclavicular or axillary adenopathy. LUNGS: Clear. ABDOMEN: Soft, nontender without rebound or guarding. EXTREMITIES: No edema. MUSCULOSKELETAL: No spine or flank tenderness. NEUROLOGIC: No focal motor or sensory findings. No definite dysmetria. IMPRESSION: The patient is a 53-year-old female initially diagnosed with locally advanced carcinoma of the right breast in 2010 and who is managed with mastectomy, adjuvant chemotherapy and endocrine t herapy, but she did not receive any radiation treatment. She did develop biopsy proven metastatic di sease to the lung in 2017. This did resolve with systemic treatment. She now has evidence of joelle us brain metastases. PLAN: The patient can be considered for palliative radiation therapy to the whole brain. I would ge nerally consider protracted fractionation due to her absence of systemic disease and her young age. I would also consider the use of Namenda as a mechanism to decreased neurocognitive change. She would require CT simulation for treatment planning purposes. I would hope to expedite planning a nd treatment delivery. We did review the nature, rationale, risks and benefits of treatment. Side e ffects were discussed and questions were answered. This included but not limited to discussion of po tential for fatigue, skin reaction including desquamation, hair loss, extreme fatigue, worsening intr acranial pressure (including headaches, nausea and visual disturbances) and forms of neurocognitive c hange. Numerous several questions were asked and answered. She does wish to proceed. I will see if we can make arrangements tomorrow for CT simulation. Treatments can then be started as an inpatient if need be. Dictated By: WINSTON OWENS/NTS Conf#: [id number] DID#: [id number] CC: ALBAN VILLASEÑOR MD; TRACE MESSNIA MD; MARAH DUMONT MD;*End*
[2019-03-22] MEDS: DEXAMETHASONE 4 MG/ML 1 ML INJ IV SCH ×5 (00:03→22:23)
[2019-03-22 00:25] VITALS: BP 120/58; PULSE 70; RESP 18
[2019-03-22] MEDS: BISACODYL (EC) 5 MG TAB PO PRN (01:00)
[2019-03-22 02:00] VITALS: BP 119/57; PULSE 61; RESP 18
[2019-03-22] MEDS: ACCU-CHEK XX SCH ×5 (02:00→20:12)
[2019-03-22] MEDS: PANTOPRAZOLE (EC) 40 MG TAB PO SCH (05:53)
[2019-03-22 08:12] VITALS: BP 117/60; PULSE 76; RESP 18
[2019-03-22] MEDS: HYDROCHLOROTHIAZIDE 25 MG TAB PO SCH (08:50)
[2019-03-22] MEDS: LOSARTAN 25 MG TAB PO SCH (08:50)
[2019-03-22] MEDS: AMLODIPINE 10 MG TAB PO SCH (08:50)
[2019-03-22] MEDS: ANASTROZOLE 1 MG TAB PO SCH (08:51)
[2019-03-22] MEDS: CITALOPRAM 20 MG TAB PO SCH (08:51)
[2019-03-22] MEDS: INSULIN ASPART [NOVOLOG] 3 ML PEN SC SCH ×7 (08:57→20:10)
[2019-03-22] MEDS: INSULIN GLARGINE [LANTus] (100 UNITS/ML) SYG SC SCH ×2 (08:59→20:11)
--- NOTE | 2019-03-22 13:30 | CONS ---
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 once she has started XRT will begin to taper slightly -pt to start XRT in the hospital -will plan to stat Lapatinib and Xeloda as an out patient Patient was seen and examined in collaboration with Dr. Dumont. A total of 40 minutes of face to face time was spent speaking with the patient, of which greater than 50% was spent in counseling and coordination of care and the detailed question and answer session. Consultation Date/Type/Reason Admit Date/Time Mar 21, 2019 at 11:39 Initial Consult Date 03/20/19 Type of Consult oncology Reason for Consultation her2 + breast ca Requesting Provider: WINSTON PEREZ MD Date/Time of Note DATE: 03/22/19 TIME: 13:29 24 HR Interval Summary Free Text/Dictation pt to get simmed today at radiation. continue on IV decadron Exam/Review of Systems Exam Vitals Vital Signs Date Temp Pulse Resp B/P (MAP) Pulse Ox O2 O2 Flow FiO2 Time Delivery Rate 03/22/19 98.0 76 18 117/60 96 Room Air 08:12 (79) Intake and Output 03/21/19 03/21/19 03/22/19 1515:00 23:00 07:00 IntakeIntake Total 340 ml 360 ml BalanceBalance 340 ml 360 ml Constitutional: alert, oriented, distress, frail Psych: anxiety, depression Head: normocephalic Eyes: nl conjunctiva ENMT: nl external ears & nose Neck: supple Respiratory: clear to auscultation Cardiovascular: regular rate and rhythm Gastrointestinal: soft Musculoskeletal: nl extremities to inspection Results Result Diagram: 03/21/19 0529 03/21/19 0529 Results 24hrs Laboratory Tests Test 03/21/19 17:41 03/21/19 21:29 03/22/19 01:31 03/22/19 07:59 Bedside Glucose 293 H 298 H 309 H 308 H Medications Medication Current Medications Diagnostic Test (Pha) (Accu-Chek) 1 ea AC MEALS AND BEDTIME XX Last administered on 03/22/19at 07:30; Admin Dose 1 EA; Start 03/19/19 at 21:00 Pantoprazole (Protonix Tab) 40 mg DAILY@06 PO Last administered on 03/22/19at 05:53; Admin Dose 40 MG; Start 03/20/19 at 06:00 Acetaminophen (Tylenol Tab) 650 mg Q6H PRN PO MILD PAIN(1-3)OR ELEVATED TEMP; Start 03/19/19 at 20:00 Ondansetron HCl (Zofran Inj) 4 mg Q6H PRN IV NAUSEA AND/OR VOMITING; Start 03/19/19 at 20:00 Bisacodyl (Dulcolax) 10 mg BID PRN PO CONSTIPATION Last administered on 9at 01:00; Admin Dose 10 MG; Start 03/19/19 at 20:00 Morphine Sulfate (morphine) 2 mg Q4H PRN IV SEVERE PAIN LEVEL 7-10; Start 03/19/19 at 20:00 Anastrozole (Arimidex) 1 mg DAILY PO Last administered on 03/22/19at 08:51; Admin Dose 1 MG; Start 03/20/19 at 09:00 Citalopram Hydrobromide (Celexa) 20 mg DAILY PO Last administered on 03/22/19at 08:51; Admin Dose 20 MG; Start 03/20/19 at 09:00 Miscellaneous Information 1 ea NOTE XX ; Start 03/19/19 at 20:30 Glucose (Glutose) 15 gm Q15M PRN PO DECREASED GLUCOSE; Start 03/19/19 at 20:30 Glucose (Glutose) 22.5 gm Q15M PRN PO DECREASED GLUCOSE; Start 03/19/19 at 20:30 Dextrose (D50w Syringe) 25 ml Q15M PRN IV DECREASED GLUCOSE; Start 03/19/19 at 20:30 Dextrose (D50w Syringe) 50 ml Q15M PRN IV DECREASED GLUCOSE; Start 03/19/19 at 20:30 Glucagon (Glucagen) 1 mg Q15M PRN IM DECREASED GLUCOSE; Start 03/19/19 at 20:30 Glucose (Glutose) 15 gm Q15M PRN BUCCAL DECREASED GLUCOSE; Start 03/19/19 at 20:30 Hydrochlorothiazide (Hydrochlorothiazide) 25 mg DAILY PO Last administered on 03/22/19at 08:50; Admin Dose 25 MG; Start 03/20/19 at 09:00 Amlodipine Besylate (Norvasc) 10 mg DAILY PO Last administered on 03/22/19 08:50; Admin Dose 10 MG; Start 03/20/19 at 09:00 Dexamethasone (Decadron) 4 mg Q6 IV Last administered on 03/22/19 05:53; Admin Dose 4 MG; Start 03/20/19 at 12:00 Losartan Potassium (Cozaar) 25 mg DAILY PO Last administered on 03/22/19 08:50; Admin Dose 25 MG; Start 03/21/19 at 09:00 Diagnostic Test (Pha) (Accu-Chek) 1 ea 02 XX Last administered on 03/21/19 02:09; Admin Dose 1 EA; Start 03/21/19 at 02:00 Insulin Aspart (Novolog Insulin Pen) NOVOLOG *MILD* ALGORITHM WITH MEALS BEDTIME SC Last administered on 03/22/19 08:58; Admin Dose 5 UNIT; Start 03/20/19 at 12:30 Insulin Aspart (Novolog Insulin Pen) 8 unit WITH MEALS SC Last administered on 03/22/19 08:57; Admin Dose 8 UNIT; Start 03/21/19 at 07:55 Insulin Glargine (Lantus) 18 units BID@0800,2000 SC Last administered on 03/22/19 08:59; Admin Dose 18 UNITS; Start 03/21/19 at 20:00 MARAH DUMONT M.D. Mar 22, 2019 13:30
--- NOTE | 2019-03-22 13:53 | PN ---
Date/Time of Note Date/Time of Note DATE: 03/22/19 TIME: 13:53 Assessment/Plan VTE Prophylaxis Risk score (from Ns)>0 risk: 4 SCD applied (from Ns): Yes Pharmacological prophylaxis: NA/contraindicated Pharm contraindication: low risk/ambulating Lines/Catheters IV [facility] [place] Assessment/Plan Assessment/Plan 53-year-old female who presented with: 1. Acute onset of frontal headaches with dizziness, blurry vision and weakness secondary to multiple brain metastases from history of breast cancer. 2. Diabetes with hyperglycemia, likely secondary to steroids. 3. Right brain metastases with surrounding vasogenic edema. 4. History of breast cancer status post mastectomy with history of lung cancer, now with recurrence. 5. History of hypertension. Plan - xrt to be started , will continuie x 2 days in house - cw lantus 18 bid, increased mealtime insulin and ISS and add NPH - Robitussin for cough - cw Dexamethasone 4 mg q6 - cw losartan and amlodipine - gi/dvt prophylaxsis Result Diagram: 03/21/19 0529 03/21/19 0529 Results 24hrs Laboratory Tests Test 03/21/19 17:41 03/21/19 21:29 03/22/19 01:31 03/22/19 07:59 Bedside Glucose 293 H 298 H 309 H 308 H Test 03/22/19 13:28 Bedside Glucose 320 H Subjective 24 Hr Interval Summary Free Text/Dictation sugars still elevated some cough Exam/Review of Systems Exam Vitals Vital Signs Date Temp Pulse Resp B/P (MAP) Pulse Ox O2 O2 Flow FiO2 Time Delivery Rate 03/22/19 98.0 76 18 117/60 96 Room Air 08:12 (79) Intake and Output 03/21/19 03/21/19 03/22/19 1515:00 23:00 07:00 IntakeIntake Total 340 ml 360 ml BalanceBalance 340 ml 360 ml Exam GENERAL: The patient is mildly obese, does not appear to be in acute distress. HEENT: Normocephalic, atraumatic. HEART: Regular rate and rhythm. LUNGS: Clear to auscultation bilaterally. ABDOMEN: Soft, nontender, nondistended. Positive normoactive bowel sounds. EXTREMITIES: No clubbing, cyanosis or edema. NEUROLOGICAL: The patient is awake, alert, oriented x3, fluent speech, answers all questions appropriately. Normal attention, concentration. Extraocular movements are intact. Motor strength is 5/5. Minimal left pronator drift. Gait could not be assessed secondary to condition. Sensation was intact. Results Results 24hrs Laboratory Tests Test 03/21/19 17:41 03/21/19 21:29 03/22/19 01:31 03/22/19 07:59 Bedside Glucose 293 H 298 H 309 H 308 H Test 03/22/19 13:28 Bedside Glucose 320 H Medications Medication Current Medications Diagnostic Test (Pha) (Accu-Chek) 1 ea AC MEALS AND BEDTIME XX Last administered on 03/22/19at 11:30; Admin Dose 1 EA; Start 03/19/19 at 21:00 Pantoprazole (Protonix Tab) 40 mg DAILY@06 PO Last administered on 03/22/19at 05:53; Admin Dose 40 MG; Start 03/20/19 at 06:00 Acetaminophen (Tylenol Tab) 650 mg Q6H PRN PO MILD PAIN(1-3)OR ELEVATED TEMP; Start 03/19/19 at 20:00 Ondansetron HCl (Zofran Inj) 4 mg Q6H PRN IV NAUSEA AND/OR VOMITING; Start 03/19/19 at 20:00 Bisacodyl (Dulcolax) 10 mg BID PRN PO CONSTIPATION Last administered on at 01:00; Admin Dose 10 MG; Start 03/19/19 at 20:00 Morphine Sulfate (morphine) 2 mg Q4H PRN IV SEVERE PAIN LEVEL 7-10; Start 03/19/19 at 20:00 Anastrozole (Arimidex) 1 mg DAILY PO Last administered on 03/22/19at 08:51; Admin Dose 1 MG; Start 03/20/19 at 09:00 Citalopram Hydrobromide (Celexa) 20 mg DAILY PO Last administered on 03/22/19at 08:51; Admin Dose 20 MG; Start 03/20/19 at 09:00 Miscellaneous Information 1 ea NOTE XX ; Start 03/19/19 at 20:30 Glucose (Glutose) 15 gm Q15M PRN PO DECREASED GLUCOSE; Start 03/19/19 at 20:30 Glucose (Glutose) 22.5 gm Q15M PRN PO DECREASED GLUCOSE; Start 03/19/19 at 20:30 Dextrose (D50w Syringe) 25 ml Q15M PRN IV DECREASED GLUCOSE; Start 03/19/19 at 20:30 Dextrose (D50w Syringe) 50 ml Q15M PRN IV DECREASED GLUCOSE; Start 03/19/19 at 20:30 Glucagon (Glucagen) 1 mg Q15M PRN IM DECREASED GLUCOSE; Start 03/19/19 at 20:30 Glucose (Glutose) 15 gm Q15M PRN BUCCAL DECREASED GLUCOSE; Start 03/19/19 at 20:30 Hydrochlorothiazide (Hydrochlorothiazide) 25 mg DAILY PO Last administered on 03/22/19 08:50; Admin Dose 25 MG; Start 03/20/19 at 09:00 Amlodipine Besylate (Norvasc) 10 mg DAILY PO Last administered on 03/22/19 08:50; Admin Dose 10 MG; Start 03/20/19 at 09:00 Dexamethasone (Decadron) 4 mg Q6 IV Last administered on 03/22/19 13:36; Admin Dose 4 MG; Start 03/20/19 at 12:00 Losartan Potassium (Cozaar) 25 mg DAILY PO Last administered on 03/22/19 08:50; Admin Dose 25 MG; Start 03/21/19 at 09:00 Diagnostic Test (Pha) (Accu-Chek) 1 ea 02 XX Last administered on 03/21/19 02:09; Admin Dose 1 EA; Start 03/21/19 at 02:00 Insulin Aspart (Novolog Insulin Pen) NOVOLOG *MILD* ALGORITHM WITH MEALS BEDTIME SC Last administered on 03/22/19 13:33; Admin Dose 5 UNIT; Start 03/20/19 at 12:30 Insulin Aspart (Novolog Insulin Pen) 8 unit WITH MEALS SC Last administered on 03/22/19 13:32; Admin Dose 8 UNIT; Start 03/21/19 at 07:55 Insulin Glargine (Lantus) 18 units BID@0800,2000 SC Last administered on 03/22/19 08:59; Admin Dose 18 UNITS; Start 03/21/19 at 20:00 WINSTON PEREZ MD Mar 22, 2019 13:53
[2019-03-22 14:25] VITALS: BP 126/58; PULSE 71; RESP 18
[2019-03-22] MEDS: NPH, HUMAN INSULIN ISOPHANE 3ML VIAL SC SCH ×2 (14:36→22:28)
[2019-03-22 19:40] VITALS: BP 108/55; PULSE 60; RESP 17
[2019-03-23] MEDS ORDERED: INSULIN ASPART [NOVOLOG] 3 ML PEN SC ONE
[2019-03-23] MEDS ORDERED: ACCU-CHEK XX ONE (02:00)
[2019-03-23 02:12] VITALS: BP 119/58; PULSE 60; RESP 17
[2019-03-23] MEDS: DEXAMETHASONE 4 MG/ML 1 ML INJ IV SCH ×3 (05:44→22:07)
[2019-03-23] MEDS: NPH, HUMAN INSULIN ISOPHANE 3ML VIAL SC SCH ×3 (05:48→22:08)
[2019-03-23] MEDS: PANTOPRAZOLE (EC) 40 MG TAB PO SCH (05:49)
[2019-03-23 08:00] VITALS: BP 117/59; PULSE 60; RESP 18
[2019-03-23] MEDS: ACCU-CHEK XX SCH ×4 (08:08→20:55)
[2019-03-23] MEDS: INSULIN ASPART [NOVOLOG] 3 ML PEN SC SCH ×7 (08:10→20:50)
[2019-03-23] MEDS: INSULIN GLARGINE [LANTus] (100 UNITS/ML) SYG SC SCH ×2 (08:12→20:50)
[2019-03-23] MEDS: LOSARTAN 25 MG TAB PO SCH (08:14)
[2019-03-23] MEDS: CITALOPRAM 20 MG TAB PO SCH (08:14)
[2019-03-23] MEDS: AMLODIPINE 10 MG TAB PO SCH (08:14)
[2019-03-23] MEDS: HYDROCHLOROTHIAZIDE 25 MG TAB PO SCH (08:14)
[2019-03-23] MEDS: ANASTROZOLE 1 MG TAB PO SCH (08:15)
[2019-03-23 14:00] VITALS: BP 122/63; PULSE 77; RESP 16
[2019-03-23] MEDS: GUAIFENESIN/DM 5ML CUP PO PRN ×2 (15:36→20:43)
[2019-03-23] MEDS ORDERED: ALBUTEROL/IPRATROPIUM (NEB) 3 ML AMP HHN PRN (16:00)
--- NOTE | 2019-03-23 16:15 | PN ---
Date/Time of Note Date/Time of Note DATE: 03/23/19 TIME: 16:15 Assessment/Plan VTE Prophylaxis Risk score (from Ns)>0 risk: 4 SCD applied (from Ns): Yes Pharmacological prophylaxis: NA/contraindicated Pharm contraindication: low risk/ambulating Lines/Catheters IV Catheter Type (from Nrsg): [place] [employer] line still needed: No Urinary Cath still in place: No Assessment/Plan Assessment/Plan ssessment/Plan 53-year-old female who presented with: 1. Acute onset of frontal headaches with dizziness, blurry vision and weakness secondary to multiple brain metastases from history of breast cancer. 2. Diabetes with hyperglycemia, likely secondary to steroids. 3. Right brain metastases with surrounding vasogenic edema. 4. History of breast cancer status post mastectomy with history of lung cancer, now with recurrence. 5. History of hypertension. Plan - cw XRT X2 DAYS in house - nebs prn - cw lantus 18 bid, increased mealtime insulin and ISS and cw NPH - Robitussin for cough - cw Dexamethasone 4 mg q8 - cw losartan and amlodipine - gi/dvt prophylaxsis Result Diagram: 03/21/19 0529 03/22/19 230 Results 24hrs Laboratory Tests Test 03/22/19 17:22 03/22/19 20:08 03/22/19 22:31 03/22/19 23:07 Bedside Glucose 359 H 287 H 409 *H Glucose Level 398 H Test 03/23/19 02:16 03/23/19 05:43 03/23/19 07:56 03/23/19 12:10 Bedside Glucose 304 H 264 H 232 H 252 H Subjective 24 Hr Interval Summary Free Text/Dictation doing well some cough Exam/Review of Systems Exam Vitals Vital Signs Date Temp Pulse Resp B/P (MAP) Pulse Ox O2 O2 Flow FiO2 Time Delivery Rate 03/23/19 98.3 77 16 122/63 94 Room Air 14:00 (82) Intake and Output 03/22/19 03/22/19 03/23/19 1515:00 23:00 07:00 IntakeIntake Total 400 ml BalanceBalance 400 ml Exam lungs:clear Results Results 24hrs Laboratory Tests Test 03/22/19 17:22 03/22/19 20:08 03/22/19 22:31 03/22/19 23:07 Bedside Glucose 359 H 287 H 409 *H Glucose Level 398 H Test 03/23/19 02:16 03/23/19 05:43 03/23/19 07:56 03/23/19 12:10 Bedside Glucose 304 H 264 H 232 H 252 H Medications Medication Current Medications Diagnostic Test (Pha) (Accu-Chek) 1 ea AC MEALS AND BEDTIME XX Last administered on 03/23/19at 12:14; Admin Dose 1 EA; Start 03/19/19 at 21:00 Pantoprazole (Protonix Tab) 40 mg DAILY@06 PO Last administered on 03/23/19at 05:49; Admin Dose 40 MG; Start 03/20/19 at 06:00 Acetaminophen (Tylenol Tab) 650 mg Q6H PRN PO MILD PAIN(1-3)OR ELEVATED TEMP; Start 03/19/19 at 20:00 Ondansetron HCl (Zofran Inj) 4 mg Q6H PRN IV NAUSEA AND/OR VOMITING; Start 03/19/19 at 20:00 Bisacodyl (Dulcolax) 10 mg BID PRN PO CONSTIPATION Last administered on 03/22/19at 01:00; Admin Dose 10 MG; Start 03/19/19 at 20:00 Morphine Sulfate (morphine) 2 mg Q4H PRN IV SEVERE PAIN LEVEL 7-10; Start 03/19/19 at 20:00 Anastrozole (Arimidex) 1 mg DAILY PO Last administered on 03/23/19at 08:15; Admin Dose 1 MG; Start 03/20/19 at 09:00 Citalopram Hydrobromide (Celexa) 20 mg DAILY PO Last administered on 03/23/19at 08:14; Admin Dose 20 MG; Start 03/20/19 at 09:00 Miscellaneous Information 1 ea NOTE XX ; Start 03/19/19 at 20:30 Glucose (Glutose) 15 gm Q15M PRN PO DECREASED GLUCOSE; Start 03/19/19 at 20:30 Glucose (Glutose) 22.5 gm Q15M PRN PO DECREASED GLUCOSE; Start 03/19/19 at 20:30 Dextrose (D50w Syringe) 25 ml Q15M PRN IV DECREASED GLUCOSE; Start 03/19/19 at 20:30 Dextrose (D50w Syringe) 50 ml Q15M PRN IV DECREASED GLUCOSE; Start 03/19/19 at 20:30 Glucagon (Glucagen) 1 mg Q15M PRN IM DECREASED GLUCOSE; Start 03/19/19 at 20:30 Glucose (Glutose) 15 gm Q15M PRN BUCCAL DECREASED GLUCOSE; Start 03/19/19 at 20:30 Hydrochlorothiazide (Hydrochlorothiazide) 25 mg DAILY PO Last administered on 03/23/19 08:14; Admin Dose 25 MG; Start 03/20/19 at 09:00 Amlodipine Besylate (Norvasc) 10 mg DAILY PO Last administered on 03/23/19 08:14; Admin Dose 10 MG; Start 03/20/19 at 09:00 Losartan Potassium (Cozaar) 25 mg DAILY PO Last administered on 03/23/19 08:14; Admin Dose 25 MG; Start 03/21/19 at 09:00 Insulin Aspart (Novolog Insulin Pen) 8 unit WITH MEALS SC Last administered on 03/23/19 12:13; Admin Dose 8 UNIT; Start 03/21/19 at 07:55 Insulin Glargine (Lantus) 18 units BID@0800,2000 SC Last administered on 03/23/19 08:12; Admin Dose 18 UNITS; Start 03/21/19 at 20:00 Guaifenesin/ Dextromethorphan (Robitussin Dm Liquid Cup) 10 ml Q4H PRN PO cough Last administered on 03/23/19 15:36; Admin Dose 10 ML; Start 03/22/19 at 14:00 Dexamethasone (Decadron) 4 mg Q8 IV Last administered on 03/23/19 13:17; Admin Dose 4 MG; Start 03/22/19 at 14:00 Insulin Human NPH (Humulin N) 3 unit Q8 SC Last administered on 03/23/19 13 :20; Admin Dose 3 UNIT; Start 03/22/19 at 14:00 Insulin Aspart (Novolog Insulin Pen) NOVOLOG *MODERATE* ALGORITHM WITH MEALS BEDTIME SC Last administered on 03/23/19 12:13; Admin Dose 6 UNIT; Start 03/23/19 at 08:00 Albuterol/ Ipratropium (Duoneb) 3 ml Q6H RESP THERAPY PRN HHN SHORTNESS OF BREATH; Start 03/23/19 at 16:00 WINSTON PEREZ MD Mar 23, 2019 16:15
[2019-03-23 20:00] VITALS: BP 141/55; PULSE 59; RESP 20
[2019-03-24 02:00] VITALS: BP 109/59; PULSE 59; RESP 18
[2019-03-24] MEDS: GUAIFENESIN/DM 5ML CUP PO PRN (04:10)
[2019-03-24] MEDS: PANTOPRAZOLE (EC) 40 MG TAB PO SCH (05:54)
[2019-03-24] MEDS: DEXAMETHASONE 4 MG/ML 1 ML INJ IV SCH ×2 (05:54→15:00)
[2019-03-24] MEDS: NPH, HUMAN INSULIN ISOPHANE 3ML VIAL SC SCH ×2 (05:55→15:04)
[2019-03-24] MEDS: ACCU-CHEK XX SCH ×2 (07:30→12:06)
[2019-03-24 08:00] VITALS: BP 113/59; PULSE 58; RESP 17
[2019-03-24] MEDS: INSULIN ASPART [NOVOLOG] 3 ML PEN SC SCH ×4 (08:08→12:06)
[2019-03-24] MEDS: HYDROCHLOROTHIAZIDE 25 MG TAB PO SCH (08:27)
[2019-03-24] MEDS: LOSARTAN 25 MG TAB PO SCH (08:27)
[2019-03-24] MEDS: AMLODIPINE 10 MG TAB PO SCH (08:28)
[2019-03-24] MEDS: CITALOPRAM 20 MG TAB PO SCH (08:28)
[2019-03-24] MEDS: ANASTROZOLE 1 MG TAB PO SCH (08:30)
[2019-03-24] MEDS: INSULIN GLARGINE [LANTus] (100 UNITS/ML) SYG SC SCH (08:39)
--- NOTE | 2019-03-24 12:59 | PDOCDIS ---
Discharge Instructions DIAGNOSIS Discharge Diagnosis metastatic cancer CONDITION [id number] Patient Condition: [id number] Stable ACTIVITY: [id number] Activity Restrictions: [id number] Slowly Increase Activity Rest between Activity Avoid heavy lifting FOLLOW UP/APPOINTMENTS Follow-up Plan Dr Santana 1 week, c/w radiation sessions EDMAR CLAYTON Mar 24, 2019 12:59
[2019-03-24] MEDS ORDERED: DEXA4TAB PO ×2 (13:02→13:05)
--- NOTE | 2019-03-24 13:02 | DS ---
Date/Time of Note Date/Time of Note DATE: 03/24/19 TIME: 13:02 Discharge Summary Admission/Discharge Info Admit Date/Time Mar 21, 2019 at 11:39 Discharge Date/Time Discharge Diagnosis metastatic cancer Patient Condition: Stable Consults Dr king, neurosurgeon, dr figueroa, oncology, Dr Saleem, neurology Hospital Course This is a 53-year-old female with past medical history of breast cancer diagnosed in 2010, status post right mastectomy followed by Dr. Figueroa as an outpatient. According to the patient, she was diagnosed with lung metastasis in 07/2017 and since then has been receiving chemotherapy with Dr. Figueroa. Her last chemotherapy was 3 months ago. According to her, she had a recent scan with Dr. Figueroa 2 to 3 weeks ago and was told that her cancer has been in remission. The patient started having some headaches for the last 2 weeks; however she was also feeling some weakness in the legs. She never told Dr. Figueroa about this. She started having worsening right-sided headaches and some dizziness and blurry vision and came into the emergency department for further evaluation. Yesterday, the patient said that she was also feeling weakness in the legs. The patient denied any nausea or vomiting today. On arrival, temperature was 98.2, pulse 78, respirations 20, blood pressure 154/74. White count was 8.8, hemoglobin 13.1, platelet count 217, sodium 137, BUN 19, creatinine 0.6, glucose of 232. The patient had a CT of the head that showed several right brain masses that are identified, vasogenic edema most concerning for metastatic disease in patient with a history of breast cancer. Then, the patient had an MRI of the brain that showed multiple enhancing lesions throughout supratentorial and infratentorial brain parenchyma, largest seen in the right anterior frontal lobe measuring 3 cm, multiple lesions demonstrate surrounding vasogenic edema. There is no midline shift or herniation. Findings are consistent with metastatic disease. The patient received Decadron 10 mg IV, morphine, Zofran. Neurosurgery was consulted and the patient was admitted for further management. Currently, the patient states that her headache is 2 to 3. Denied any blurry vision. PAST MEDICAL HISTORY: 1. Right breast cancer, status post right mastectomy. The patient had been in remission with history of lung metastases in 2016. 2. Hypertension. 3. Hyperlipidemia. 1. Acute onset of frontal headaches with dizziness, blurry vision and weakness secondary to multiple brain metastases from history of breast cancer. 2. Diabetes with hyperglycemia, likely secondary to steroids. 3. Right brain metastases with surrounding vasogenic edema. 4. History of breast cancer status post mastectomy with history of lung cancer, now with recurrence. 5. History of hypertension. During hospitalization pt was seen by neurosurgeon dr King. He said none of the brain lesions are significantly large enough to likely benefit any surgical resection as the patient does not have any impending deterioration from the size of the lesion or focal neurologic deficit associated with the lesions. He offered radiosurgery versus whole brain radiation; however given the total number of metastases, this would appear to be most recently treated with whole b rain radiation. Pt was started on head radiation for [address] Figueroa also consulted pt. She reviewed pt MRI brain that revealed : Multiple enhancing lesions throughout the supratentorial and infratentorial brain parenchyma. Largest is seen in the right anterior frontal lobe, measuring up to 3.0 cm. Multiple lesions demonstrate surrounding vasogenic edema. However, there is no midline shift or herniation. Findings are consistent with metastatic disease. She started pt on Dexamethasone 4mg q 6 hours. We cw lantus 18 bid for hypoglycemic control, increased mealtime insulin. Pt received Robitussin for cough. We cw losartan and amlodipine. Pt clinically felt better. Dr Saleem, neurology followed her headache. She offered seizure precautions. Stated that AED Tx is not presently indicated. She offered PT for gait training. Pt was discharged in stable condition to c/w brain radiation and for treatment of dr Figueroa. Pt was given instructions to check blodd sugar three times a week and gi ve an additional insulin injections per sliding scale. Home Meds Active Scripts Dexamethasone* (Dexamethasone*) 4 Mg Tablet, 4 MG PO TID for 7 Days, TAB Prov:EDMAR CLAYTON 03/24/19 Reported Medications Insulin Glargine/Lixisenatide (Soliqua 100 Unit-33 Mcg/ml Pen) 3 Ml Insuln.pen, 35 ML SQ QAM 03/19/19 Olmesartan/Amlodipin/Hcthiazid (Saueblz-Xdqhlu-Zadd 40-10-25Mg) 1 Each Tablet, 1 EACH PO DAILY, TAB 03/19/19 Citalopram Hydrobromide* (Celexa*) 20 Mg Tablet, 20 MG PO DAILY, #30 TAB 03/19/19 Anastrozole* (Arimidex*) 1 Mg Tablet, 1 MG PO DAILY, #30 TAB 03/19/19 Follow-up Plan Dr Santana 1 week, c/w radiation sessions Primary Care Provider Sohail Wong Time spent on discharge: < 30 minutes Pending Labs Laboratory Tests Test 03/23/19 16:56 03/23/19 20:46 03/23/19 22:06 03/24/19 05:52 Bedside 266 268 227 272 Glucose mg/dL (70-220) mg/dL (70-220) mg/dL (70-220) mg/dL (70-220) Test 03/24/19 08:05 03/24/19 12:01 Bedside 239 309 Glucose mg/dL (70-220) mg/dL (70-220) EDMAR CLAYTON Mar 24, 2019 13:02
--- NOTE | 2019-03-24 13:21 | CONS ---
Assessment/Plan Assessment/Plan Hospital Course (Demo Recall) 53 yo with metastatic Her2 + breast ca with pulmonary mets #Her 2 positive breast ca #Brain mets -can taper decadron to 4mg po BID . -continue XRT a an outpatient. pt has scheduled -will plan to stat Lapatinib and Xeloda as an out patient Patient was seen and examined in collaboration with Dr. Dumont. A total of 40 minutes of face to face time was spent speaking with the patient, of which greater than 50% was spent in counseling and coordination of care and the detailed question and answer session. Consultation Date/Type/Reason Admit Date/Time Mar 21, 2019 at 11:39 Initial Consult Date 03/20/19 Type of Consult oncology Reason for Consultation metastatic breast cancer to brain Requesting Provider: WINSTON PEREZ MD Date/Time of Note DATE: 03/24/19 TIME: 13:20 24 HR Interval Summary Free Text/Dictation feels better since she started brain XRT Exam/Review of Systems Exam Vitals Vital Signs Date Temp Pulse Resp B/P (MAP) Pulse Ox O2 O2 Flow FiO2 Time Delivery Rate 03/24/19 97.8 58 17 113/59 92 Room Air 08:00 (77) Intake and Output 03/23/19 03/23/19 03/24/19 1515:00 23:00 07:00 IntakeIntake Total 300 ml 400 ml 650 ml BalanceBalance 300 ml 400 ml 650 ml Constitutional: alert, oriented Psych: no complaints Head: normocephalic Eyes: nl conjunctiva ENMT: nl external ears & nose Neck: supple Respiratory: clear to auscultation Cardiovascular: regular rate and rhythm Gastrointestinal: soft Musculoskeletal: nl extremities to inspection Results Result Diagram: 03/21/19 0529 03/22/19 2307 Results 24hrs Laboratory Tests Test 03/23/19 16:56 03/23/19 20:46 03/23/19 22:06 03/24/19 05:52 Bedside Glucose 266 H 268 H 227 H 272 H Test 03/24/19 08:05 03/24/19 12:01 Bedside Glucose 239 H 309 H Medications Medication Current Medications Diagnostic Test (Pha) (Accu-Chek) 1 ea AC MEALS AND BEDTIME XX Last administered on 03/24/19at 12:06; Admin Dose 1 EA; Start 03/19/19 at 21:00 Pantoprazole (Protonix Tab) 40 mg DAILY@06 PO Last administered on 03/24/19at 05:54; Admin Dose 40 MG; Start 03/20/19 at 06:00 Acetaminophen (Tylenol Tab) 650 mg Q6H PRN PO MILD PAIN(1-3)OR ELEVATED TEMP; Start 03/19/19 at 20:00 Ondansetron HCl (Zofran Inj) 4 mg Q6H PRN IV NAUSEA AND/OR VOMITING; Start 03/19/19 at 20:00 Bisacodyl (Dulcolax) 10 mg BID PRN PO CONSTIPATION Last administered on 03/22/19at 01:00; Admin Dose 10 MG; Start 03/19/19 at 20:00 Morphine Sulfate (morphine) 2 mg Q4H PRN IV SEVERE PAIN LEVEL 7-10; Start 03/19/19 at 20:00 Anastrozole (Arimidex) 1 mg DAILY PO Last administered on 03/24/19at 08:30; Admin Dose 1 MG; Start 03/20/19 at 09:00 Citalopram Hydrobromide (Celexa) 20 mg DAILY PO Last administered on 03/24/19at 08:28; Admin Dose 20 MG; Start 03/20/19 at 09:00 Miscellaneous Information 1 ea NOTE XX ; Start 03/19/19 at 20:30 Glucose (Glutose) 15 gm Q15M PRN PO DECREASED GLUCOSE; Start 03/19/19 at 20:30 Glucose (Glutose) 22.5 gm Q15M PRN PO DECREASED GLUCOSE; Start 03/19/19 at 20:30 Dextrose (D50w Syringe) 25 ml Q15M PRN IV DECREASED GLUCOSE; Start 03/19/19 at 20:30 Dextrose (D50w Syringe) 50 ml Q15M PRN IV DECREASED GLUCOSE; Start 03/19/19 at 20:30 Glucagon (Glucagen) 1 mg Q15M PRN IM DECREASED GLUCOSE; Start 03/19/19 at 20:30 Glucose (Glutose) 15 gm Q15M PRN BUCCAL DECREASED GLUCOSE; Start 03/19/19 at 20:30 Hydrochlorothiazide (Hydrochlorothiazide) 25 mg DAILY PO Last administered on 03/24/19at 08:27; Admin Dose 25 MG; Start 03/20/19 at 09:00 Amlodipine Besylate (Norvasc) 10 mg DAILY PO Last administered on 03/24/19 08:28; Admin Dose 10 MG; Start 03/20/19 at 09:00 Losartan Potassium (Cozaar) 25 mg DAILY PO Last administered on 03/24/19 08:27; Admin Dose 25 MG; Start 03/21/19 at 09:00 Insulin Aspart (Novolog Insulin Pen) 8 unit WITH MEALS SC Last administered on 03/24/19 12:06; Admin Dose 8 UNIT; Start 03/21/19 at 07:55 Insulin Glargine (Lantus) 18 units BID@0800,2000 SC Last administered on 03/24/19 08:39; Admin Dose 18 UNITS; Start 03/21/19 at 20:00 Guaifenesin/ Dextromethorphan (Robitussin Dm Liquid Cup) 10 ml Q4H PRN PO cough Last administered on 03/24/19 04:10; Admin Dose 10 ML; Start 03/22/19 at 14:00 Dexamethasone (Decadron) 4 mg Q8 IV Last administered on 03/24/19 05:54; Admin Dose 4 MG; Start 03/22/19 at 14:00 Insulin Aspart (Novolog Insulin Pen) NOVOLOG *MODERATE* ALGORITHM WITH MEALS BEDTIME SC Last administered on 03/24/19 12:05; Admin Dose 10 UNIT; Start 03/23/19 at 08:00 Albuterol/ Ipratropium (Duoneb) 3 ml Q6H RESP THERAPY PRN HHN SHORTNESS OF BREATH; Start 03/23/19 at 16:00 Insulin Human NPH (Humulin N) 5 unit Q8 SC Last administered on 03/24/19 05:55; Admin Dose 5 UNIT; Start 03/23/19 at 22:00 MARAH DUMONT M.D. Mar 24, 2019 13:21
== END 2019-03-24 15:53 | disposition home or self-care (01) | DRG 54 ==
LOC: E/R 13:16 → TEL 17:15 → OBSVTOIN 03-21 11:39 → PP2 03-22 00:10
PROVIDERS: ADMIT Internal Medicine Nephrology; ATTEND Internal Medicine Nephrology
DX: C79.31 Secondary malignant neoplasm of brain (principal); G93.6 Cerebral edema; C78.00 Secondary malignant neoplasm of unspecified lung; E11.65 Type 2 diabetes mellitus with hyperglycemia; I10 Essential (primary) hypertension; E78.5 Hyperlipidemia, unspecified; C50.911 Malignant neoplasm of unspecified site of right female breast; E11.40 Type 2 diabetes mellitus with diabetic neuropathy, unspecified; Z85.3 Personal history of malignant neoplasm of breast; Z90.11 Acquired absence of right breast and nipple; Z79.811 Long term (current) use of aromatase inhibitors; T38.0X5A Adverse effect of glucocorticoids and synthetic analogues, initial encounter
CPT/HCPCS: 36415; 70450; 70553; 71045; 77014; 77290; 77334; 77412; 80048; 82947; 82962; 83735; 84100; 85025; 87070; 93005; 96374; 96375; G0378; J1100; J1650; J1815; J2270; J2765; J7040

== ENCOUNTER 2019-05-13 13:49 | Inpatient (IN) | payer MEDICARE, OTHER ==
[~2019-05-13] VITALS: Ht 165.1 cm; Wt 91.7 kg
[2019-05-13] MEDS: [UNRECOGNIZED DRUG - OTHER] PO SCH (00:52)
[~2019-05-13 13:49] MED LIST changes: +ANAS1TAB PO; -ATOR10TA65 PO; +CAPE500T17 PO; +CITA20TA11 PO; +DEXA4TAB PO; -GLIM2TAB PO; +INSU3INS2 SQ; +LANT3I SC; -LOSA1TAB22 PO; +NERA40TA PO; +OLME1TAB PO; +OMEP20CA16 PO; +ONDA4TAB13 PO; -TAMO10TA20 PO
[2019-05-13] MEDS ORDERED: morphine 4 MG/ML VIAL IV STA (15:09)
[2019-05-13] MEDS ORDERED: ONDANSETRON 4 MG INJ IV STA (15:09)
[2019-05-13] MEDS ORDERED: ASPIRIN 81 MG TAB PO STA (15:09)
[2019-05-13] MEDS ORDERED: INSULIN LISPRO 100 UNIT/ML VIAL SC ONE (17:00)
[2019-05-13] MEDS ORDERED: GLUCOSE GEL 15 GRAM TUBE PO PRN ×2 (17:00)
[2019-05-13] MEDS ORDERED: DEXTROSE 50% 50 ML SYRINGE IV PRN ×2 (17:00)
[2019-05-13] MEDS ORDERED: GLUCOSE GEL 15 GRAM TUBE BUCCAL PRN (17:00)
[2019-05-13] MEDS ORDERED: GLUCAGON 1 MG INJ IM PRN (17:00)
[2019-05-13] MEDS ORDERED: ACCU-CHEK XX ONE (17:00)
[2019-05-13] MEDS ORDERED: ONDANSETRON 4 MG INJ IV PRN (18:30)
[2019-05-13] MEDS ORDERED: ACETAMINOPHEN 325 MG TAB PO PRN ×2 (18:30→23:30)
[2019-05-13 21:36] VITALS: BP 143/73; PULSE 70; RESP 18
[2019-05-13 21:59] VITALS: Ht 165.1 cm; Wt 91.7 kg
[2019-05-13] MEDS ORDERED: NITROGLYCERIN (SL) 0.4 MG TAB SL PRN (23:30)
[2019-05-14] VITALS: BP 118/66; PULSE 69; RESP 18
[2019-05-14] MEDS: CAPECITABINE 500 MG PO SCH ×3 (00:51→20:56)
[2019-05-14] MEDS: ACCU-CHEK XX SCH (01:53)
[2019-05-14 04:00] VITALS: BP 135/76; PULSE 68; RESP 18
[2019-05-14] MEDS: PANTOPRAZOLE (EC) 40 MG TAB PO SCH (06:31)
[2019-05-14 07:33] VITALS: BP 125/74; PULSE 63; RESP 20
[2019-05-14] MEDS: ASPIRIN (EC) 81 MG TAB PO SCH (08:05)
[2019-05-14] MEDS: INSULIN ASPART [NOVOLOG] 3 ML PEN SC SCH ×4 (08:18→20:57)
[2019-05-14] MEDS: [UNRECOGNIZED DRUG - OTHER] PO SCH (10:03)
[2019-05-14 11:13] VITALS: BP 122/66; PULSE 65; RESP 20
[2019-05-14 16:07] VITALS: BP 119/65; PULSE 59; RESP 20
[2019-05-14] MEDS: ENOXAPARIN 40 MG/0.4 ML SYG SC SCH (17:08)
[2019-05-14 20:00] VITALS: BP 100/57; PULSE 60; RESP 19
[2019-05-14] MEDS: ISOSORBIDE DINITRATE 10 MG TAB PO SCH (20:44)
[2019-05-14] MEDS: METOCLOPRAMIDE 5 MG TAB PO SCH (20:49)
[2019-05-14] MEDS: INSULIN GLARGINE [LANTus] (100 UNITS/ML) SYG SC SCH (20:56)
[2019-05-15] VITALS (7 sets, daily range): BP systolic 79–115; BP diastolic 49–69; PULSE 60–82; RESP 17–18
[2019-05-15] MEDS: ACCU-CHEK XX SCH (02:35)
[2019-05-15] MEDS: PANTOPRAZOLE (EC) 40 MG TAB PO SCH (05:56)
[2019-05-15] MEDS: INSULIN ASPART [NOVOLOG] 3 ML PEN SC SCH ×4 (08:00→21:30)
[2019-05-15] MEDS: ISOSORBIDE DINITRATE 10 MG TAB PO SCH ×3 (09:19→21:00)
[2019-05-15] MEDS: ASPIRIN (EC) 81 MG TAB PO SCH (09:19)
[2019-05-15] MEDS: METOCLOPRAMIDE 5 MG TAB PO SCH ×3 (09:19→21:09)
[2019-05-15] MEDS: ENOXAPARIN 40 MG/0.4 ML SYG SC SCH (09:23)
[2019-05-15] MEDS: [UNRECOGNIZED DRUG - OTHER] PO SCH (10:10)
[2019-05-15] MEDS: CAPECITABINE 500 MG PO SCH (10:11)
[2019-05-15] MEDS ORDERED: POTASSIUM CHLORIDE (SR) 20 MEQ TAB PO STA (11:43)
[2019-05-15] MEDS ORDERED: FUROSEMIDE 20 MG INJ IV ONE (12:00)
[2019-05-15] MEDS ORDERED: SOD CHLORIDE 0.9% 250 ML IV ONE (16:30)
[2019-05-15] MEDS: INSULIN GLARGINE [LANTus] (100 UNITS/ML) SYG SC SCH (21:30)
[2019-05-16] VITALS (12 sets, daily range): BP systolic 92–188; BP diastolic 52–97; PULSE 69–86; RESP 18–28
[2019-05-16] MEDS: CAPECITABINE 500 MG PO SCH ×2 (01:12→09:00)
[2019-05-16] MEDS ORDERED: ACCU-CHEK XX SCH (02:00)
[2019-05-16] MEDS: PANTOPRAZOLE (EC) 40 MG TAB PO SCH (05:18)
[2019-05-16] MEDS ORDERED: INSULIN GLARGINE [LANTus] (100 UNITS/ML) SYG SC SCH (08:00)
[2019-05-16] MEDS: METOCLOPRAMIDE 5 MG TAB PO SCH (08:49)
[2019-05-16] MEDS: ISOSORBIDE DINITRATE 10 MG TAB PO SCH (09:00)
[2019-05-16] MEDS: [UNRECOGNIZED DRUG - OTHER] PO SCH (09:00)
[2019-05-16] MEDS: INSULIN ASPART [NOVOLOG] 3 ML PEN SC SCH (09:11)
[2019-05-16] MEDS ORDERED: PROPOFOL 40 ML ONE (10:23)
[2019-05-16] MEDS ORDERED: LIDOCAINE 2% (SDV) 5 ML INJ ONE (10:23)
[2019-05-16] MEDS ORDERED: DIPHENHYDRAMINE 50 MG INJ IV PRN (11:00)
[2019-05-16] MEDS ORDERED: FENTAnyl 50 MCG/ML VIAL IV PRN (11:00)
[2019-05-16] MEDS ORDERED: hydrALAzine 20 MG INJ IV PRN (11:00)
[2019-05-16] MEDS ORDERED: METOCLOPRAMIDE 10 MG INJ IV PRN (11:00)
[2019-05-16] MEDS ORDERED: ONDANSETRON 4 MG INJ IV PRN (11:00)
[2019-05-16] MEDS ORDERED: LABETALOL HCL 20MG INJ IV PRN (11:00)
[2019-05-16] MEDS ORDERED: HYDROmorphONE 1 MG/5 ML IV SYRINGE IV PRN ×2 (11:00)
== END 2019-05-16 16:00 | disposition home or self-care (01) | DRG 392 ==
LOC: E/R 13:49 → 6WM 18:13 → OBSVTOIN 05-15 08:21
PROVIDERS: ADMIT Internal Medicine Nephrology; ATTEND Internal Medicine Nephrology
PROC: 0DB68ZX Excision of Stomach, Via Natural or Artificial Opening Endoscopic, Diagnostic (ICD-10-PCS; principal; 2019-05-16 10:00)
DX: K29.00 Acute gastritis without bleeding (principal); C79.31 Secondary malignant neoplasm of brain; C78.00 Secondary malignant neoplasm of unspecified lung; E87.1 Hypo-osmolality and hyponatremia; R07.9 Chest pain, unspecified; Z85.3 Personal history of malignant neoplasm of breast; I10 Essential (primary) hypertension; E11.65 Type 2 diabetes mellitus with hyperglycemia; Z79.899 Other long term (current) drug therapy; E78.5 Hyperlipidemia, unspecified; K44.9 Diaphragmatic hernia without obstruction or gangrene; R11.2 Nausea with vomiting, unspecified; K21.9 Gastro-esophageal reflux disease without esophagitis; E11.43 Type 2 diabetes mellitus with diabetic autonomic (poly)neuropathy; K31.84 Gastroparesis; K29.80 Duodenitis without bleeding
CPT/HCPCS: 36415; 71045; 80048; 80053; 80061; 82962; 83036; 83690; 83735; 84100; 84484; 85025; 85610; 88305; 88312; 93005; 93306; 96372; 96374; 96375; 99217; G0378; J1650; J1815; J1940; J2270; J2405; J7040